=== PATIENT | female | born 1955 | race Caucasian/White ===

== ENCOUNTER 2018-05-07 22:24 | Inpatient (IN) | payer MEDICARE, BC, SELFPAY ==
[2018-05-07 22:31] VITALS: BP 144/81; PULSE 107; RESP 20; TEMP 37.3; O2SAT 94; BMI 35.4
[2018-05-07 23:17] LABS: Add Manual Diff / Slide Review NO; Basophils Percent Auto 0.4 % (0-2); Eosinophils Percent Auto 0.6 % (2-4); Hematocrit 42.7 % (36-46); Hemoglobin 14.3 g/dL (12.0-16.0); Mean Corpuscular HGB Conc 33.4 % (30-36); Mean Corpuscular Hemoglobin 30.1 PG (26-34); Mean Corpuscular Volume 90.1 fL (80-100); Monocytes Percent Auto 10.8 % (3-14); Neutrophils Absolute Auto 8700 /uL (3000-5900); Neutrophils Percent Auto 77.2 % (50-75); Platelet Count 298 X10^3/uL (150-400); Red Blood Cell Count 4.74 X10^6/uL (4.0-5.2); Red Cell Distribution Width 13.6 % (11.6-14.8); White Blood Cell Count 11.3 X10^3/uL (4.5-11.0)
[2018-05-07 23:22] LABS: Alanine Aminotransferase 24 IU/L (9-52); Albumin 4.4 g/dL (3.5-5.0); Albumin Globulin Ratio 1.5 (1.0-2.8); Alkaline Phosphatase 78 U/L (38-126); Aspartate Aminotransferase 17 IU/L (14-36); BUN Creatinine Ratio 23.8 (6-22); Bilirubin Total 0.5 mg/dL (0.2-1.3); Blood Urea Nitrogen 19 mg/dL (7-17); Calcium 9.5 mg/dL (8.4-10.2); Carbon Dioxide 29 mmol/L (22-32); Chloride 105 mmol/L (98-107); Estimated Glomerular Filt Rate > 60.0 mL/min (>60); Glucose 139 mg/dL (80-110); HEMOLYSIS < 15 (0-50); Potassium 3.9 mmol/L (3.4-5.1); Sodium 143 mmol/L (137-145); Total Protein 7.4 g/dL (6.3-8.2)
[2018-05-08] VITALS (14 sets, daily range): BP systolic 135–146; BP diastolic 53–114; PULSE 78–92; RESP 16–22; TEMP 36.3–36.8; O2SAT 91–97; BMI 35.4
[2018-05-08] MEDS: HYDROMORPHONE 1 MG INJ IV (00:14)
[2018-05-08] MEDS: ONDANSETRON 4 MG/2 ML INJ IV ×5 (00:14→17:48)
--- NOTE | 2018-05-08 00:17 | ED.ABDPAIN ---
HPI - Abdominal Pain General Chief Complaint: Abdominal Pain Stated Complaint: got off a flight and feels ill Time Seen by Provider: 05/07/18 23:47 Source: patient and family Mode of arrival: ambulatory Limitations: no limitations History of Present Illness HPI narrative: Patient states that she has had escalating abdominal pain for the last 2 days. She states it started on the plane on a flight from [place]. The patient states initially it was a left lower quadrant abdominal pain which escalated. She states she began to feel bloated and nauseated and today has been vomiting and dry heaving. She states if she tries to take anything by mouth, it comes right back up. She states she has passed gas today but has had no bowel movement for 3 days. Patient has a history of multiple surgeries to her abdomen, as well as a history of diverticulitis. Patient denies fevers. She states that when she vomits, it is what ever she last ate that comes up. MD complaint: abdominal pain Onset (ago): day(s) Severity scale (1-10): 9 Quality: stabbing Radiation: none Relieving factors: nothing Exacerbating factors: eating Context: other (Patient is here from [place] for a family reunion.) Associated symptoms: nausea, vomiting and other (No diarrhea, fever, chills, dysuria, melena, syncope, or hematuria. Patient has had constipation and anorexia.) Related Data Home Medications Medication Instructions Recorded Confirmed alprazolam 0.25 mg PO BID 05/08/18 05/08/18 aspirin [Aspir-Edel] 325 mg PO DAILY 05/08/18 05/08/18 bupropion HCl 300 mg PO QAM 05/08/18 05/08/18 cholecalciferol (vitamin D3) 1,000 unit PO DAILY 05/08/18 05/08/18 [Vitamin D3] glucosamine-chondroitin [Osteo 2 tab PO QPC 05/08/18 05/08/18 Bi-Flex] levothyroxine [Synthroid] 100 mcg PO DAILY 05/08/18 05/08/18 mirtazapine 15 mg PO DAILY 05/08/18 05/08/18 omeprazole 40 mg PO DAILY PRN 05/08/18 05/08/18 risperidone 1 mg PO DAILY 05/08/18 05/08/18 vitamin [id number] acid 1 tab PO DAILY 05/08/18 05/08/18 Allergies Allergy/AdvReac Type Severity Reaction Status Date / Time No Known Drug Allergies Allergy Verified 05/07/18 22:38 Review of Systems Review of Systems All systems reviewed & are unremarkable except as noted in HPI and below Constitutional Denies chills, Denies fever(s), Denies lethargy and Denies weakness Eyes Denies change in vision, Denies eye discharge, Denies irritation and Denies loss of vision ENT Ears, Nose, Mouth, and Throat: Denies change in voice, Denies neck pain and Denies sore throat Cardiovascular Denies chest pain, Denies irregular heart rhythm, Denies lightheadedness, Denies palpitations, Denies dyspnea, Denies dyspnea on exertion and Denies orthopnea Respiratory Denies cough, Denies dyspnea, Denies dyspnea on exertion and Denies wheezing Gastrointestinal Gastrointestinal: Reports abdominal pain, Denies change in bowel habits, Denies diarrhea, Reports nausea and Reports vomiting Genitourinary Denies hematuria, Denies flank pain, Denies urinary incontinence and Denies urinary urgency Musculoskeletal Denies neck pain Integumentary/Breasts Denies pruritus, Denies erythema, Denies rash and Denies wounds Neurologic Denies confusion, Denies loss of vision and Denies weakness Psychiatric Denies anxiety, Denies confusion, Denies depression, Denies homicidal ideation and Denies suicidal ideation Endocrine Denies palpitations Hematologic/Lymphatic Denies easy bruising Allergic/Immunologic Denies wheezing [facility] Medical History Anxiety disorder (Acute) Benign ovarian tumor (Acute) Depression (Acute) Gastroesophageal reflux disease (Acute) History of colitis (Acute) History of diverticulitis (Acute) History of tobacco abuse (Acute) Hyperlipidemia (Acute) Hypothyroidism (Acute) Perforation of colon as colonoscopy complication (Acute) Vitamin D deficiency (Acute) Surgical History History of colonoscopy (Acute) History of foot surgery (Acute) History of incisional hernia repair (Acute) History of unilateral oophorectomy (Acute) Status post partial colectomy (Acute) Social History household members: spouse Smoking Status: Current every day smoker Exam Initial Vital Signs Initial Vital Signs: Vital Signs Temperature 99.2 F 05/07/18 22:31 Pulse Rate 107 H 05/07/18 22:31 Respiratory Rate 20 05/07/18 22:31 Blood Pressure 144/81 H 05/07/18 22:31 Pulse Oximetry 94 05/07/18 22:31 Const General: cooperative, well developed and acute distress (Patient is writhing in pain, and tearful) Nutritional Appearance: well nourished Orientation: alert, awake, oriented x3 and not confused [facility] Head: normocephalic and atraumatic Ears: external ears normal and TM's normal bilaterally Nose: external nose normal and No nasal discharge Face and sinus: sinuses nontender, face symmetric, no sinus tenderness and No dry mucous membranes Mouth: oral mucosae normal and moist mucous membranes Teeth and gingiva: dentition normal Throat: tonsils normal and uvula midline Eyes General: appearance normal, both eyes and all related structures Eyelids: eyelids normal Conjunctivae: conjunctivae normal Sclera: sclerae normal Pupils: PERRL EOM: EOM intact bilaterally Neck Neck: normal visual inspection, trachea midline, No lymphadenopathy, No midline deformity and No JVD Lymphatic: No lymphedema Chest Chest: normal inspection of the chest Resp Effort & Inspection: normal respiratory effort, able to speak in complete sentences, no respiratory distress and no use of accessory muscles Auscultation: clear to auscultation bilaterally, no rales, no rhonchi and no wheezes Cardio Rate: regular rate Rhythm: regular rhythm Heart Sounds: no click, no gallops, no murmurs and no rubs Pulses: normal peripheral pulses GI Inspection: distended (But soft) Palpation: soft, no hepatosplenomegaly, No guarding, No pulsatile mass and tender (Moderate, left side) Auscultation: normal bowel sounds Back/Spine/Pelvis Back: No CVA tenderness Cervical Spine: cervical ROM normal and No pain with cervical ROM Thoracic/Lumbar Spine: thoracic and lumbar spine normal to inspection Skin General: no rashes or lesions noted, No jaundice and No petechiae Neuro General: alert, oriented x3, gait normal and no focal motor deficits Speech: speech normal Extrem General: full ROM, no clubbing, cyanosis or edema, no pedal edema and no calf tenderness Psych Appearance: well kempt Mental Status: mental status grossly normal Attitude: cooperative Thought Content: normal and suicidality Judgment: judgment good Course Course Narrative: Patient had significant abdominal pain in the emergency department, and was treated symptomatically with Dilaudid and Zofran. She was also given IV fluids. I felt she should be worked up to determine the cause for symptoms, and so labs, urinalysis, and abdominal CT were performed. Patient was found to have a small-bowel obstruction. An NG tube was placed in the emergency department and I did speak Dr. Wilson, who is compensation/benefits specialist for general surgery. He did agree to admit the patient. Preliminary orders were written from the emergency department by myself. Orders Ordered: Acetaminophen (Tylenol) 650 mg [place] Q6HR PRN PRN Reason: As Needed for Fever/Mild Pain Albuterol (Ventolin) 2.5 mg INH [id number] PRN PRN Reason: Shortness Of Breath Last Admin: 05/08/18 10:56 Dose: 2.5 mg Albuterol/Ipratropium (Duoneb) 3 ml INH RTBID [facility] Last Admin: 05/11/18 05:48 Dose: 3 ml Admin: 05/10/18 20:32 Dose: 3 ml Admin: 05/10/18 05:16 Dose: 3 ml Admin: 05/09/18 19:49 Dose: 3 ml Alprazolam (Xanax) 0.25 mg PO BID [facility] Last Admin: 05/11/18 08:02 Dose: 0.25 mg Admin: 05/10/18 20:48 Dose: 0.25 mg Admin: 05/10/18 09:44 Dose: 0.25 mg Benzocaine (Cepacol Lozenge) 1 each PO Q1HR PRN PRN Reason: Sore Throat Last Admin: 05/09/18 22:04 Dose: 1 each Admin: 05/09/18 19:24 Dose: 1 each Admin: 05/09/18 00:22 Dose: 1 each Admin: 05/08/18 06:50 Dose: 1 each Bupropion HCl (Wellbutrin Xl) 300 mg PO DAILY [facility] Last Admin: 05/11/18 08:02 Dose: 300 mg Admin: 05/10/18 13:41 Dose: 300 mg Enoxaparin Sodium (Lovenox) 40 mg SUBCUT DAILY [facility] Last Admin: 05/11/18 08:01 Dose: 40 mg Admin: 05/10/18 09:44 Dose: 40 mg Admin: 05/09/18 09:20 Dose: 40 mg Admin: 05/08/18 11:23 Dose: 40 mg Lorazepam (Ativan) 1 mg IV Q4HR PRN PRN Reason: Anxiety Last Admin: 05/10/18 05:03 Dose: 1 mg Admin: 05/09/18 09:56 Dose: 1 mg Admin: 05/09/18 00:31 Dose: 1 mg Admin: 05/08/18 08:18 Dose: 1 mg Magnesium Hydroxide (Milk Of Magnesia) 30 ml PO BID [facility] Last Admin: 05/11/18 08:02 Dose: Not Given Admin: 05/10/18 20:48 Dose: 30 ml Admin: 05/10/18 09:44 Dose: 30 ml Mirtazapine (Remeron) 15 mg PO BEDTIME [facility] Last Admin: 05/10/18 20:48 Dose: 15 mg Morphine Sulfate (Morphine) 2 mg IV Q2HR PRN PRN Reason: Pain, Moderate (4-6) Last Admin: 05/10/18 00:05 Dose: 2 mg Admin: 05/09/18 09:59 Dose: 2 mg Admin: 05/08/18 15:23 Dose: 2 mg Admin: 05/08/18 11:23 Dose: 2 mg Ondansetron HCl (Zofran) 4 mg IV Q6HR [facility] Last Admin: 05/11/18 06:04 Dose: Admin: 05/11/18 02:19 Dose: Admin: 05/10/18 18:12 Dose: Not Given Admin: 05/10/18 13:31 Dose: Not Given Admin: 05/10/18 06:13 Dose: Admin: 05/10/18 00:05 Dose: 4 mg Admin: 05/09/18 19:24 Dose: Admin: 05/09/18 13:34 Dose: Not Given Admin: 05/09/18 06:26 Dose: Not Given Admin: 05/09/18 00:15 Dose: 4 mg Admin: 05/08/18 17:48 Dose: 4 mg Admin: 05/08/18 13:01 Dose: 4 mg Pantoprazole Sodium (Protonix) 40 mg IV DAILY [facility] Last Admin: 05/11/18 08:02 Dose: 40 mg Admin: 05/10/18 09:44 Dose: 40 mg Admin: 05/09/18 09:20 Dose: 40 mg Admin: 05/08/18 08:18 Dose: 40 mg Risperidone (Risperdal) 1 mg PO DAILY SKIP Last Admin: 05/11/18 08:02 Dose: 1 mg Admin: 05/10/18 13:41 Dose: 1 mg Discontinued Medications Albuterol/Ipratropium (Duoneb) 3 ml INH [id number] SKIP Last Admin: 05/09/18 08:41 Dose: 3 ml Admin: 05/08/18 17:45 Dose: 3 ml Admin: 05/08/18 12:55 Dose: 3 ml Hydromorphone HCl (Dilaudid) 1 mg IV NOW ONE Stop: 05/07/18 23:55 Last Admin: 05/08/18 00:14 Dose: 1 mg Sodium Chloride (Normal Saline 0.9%) 1,000 mls @ 1,000 mls/hr IV BOLUS ONE Stop: 05/08/18 01:48 Last Infusion: 05/08/18 02:46 Dose: 0 mls/hr Admin: 05/08/18 00:50 Dose: 1,000 mls/hr Sodium Chloride (Normal Saline 0.9%) 1,000 mls @ 125 mls/hr IV CONT SKIP Last Admin: 05/08/18 03:15 Dose: 125 mls/hr Sodium Chloride (Normal Saline 0.9%) 1,000 mls @ 60 mls/hr IV CONT SKIP Last Admin: 05/11/18 06:52 Dose: 60 mls/hr Infusion: 05/11/18 06:22 Dose: 60 mls/hr Admin: 05/10/18 13:41 Dose: 60 mls/hr Infusion: 05/10/18 11:35 Dose: 150 mls/hr Admin: 05/10/18 04:54 Dose: 150 mls/hr Infusion: 05/10/18 04:45 Dose: 150 mls/hr Admin: 05/09/18 22:04 Dose: 150 mls/hr Infusion: 05/09/18 21:57 Dose: 0 mls/hr Admin: 05/09/18 15:08 Dose: 150 mls/hr Infusion: 05/09/18 08:16 Dose: 150 mls/hr Admin: 05/09/18 01:35 Dose: 150 mls/hr Infusion: 05/09/18 01:34 Dose: 150 mls/hr Admin: 05/08/18 17:47 Dose: 150 mls/hr Admin: 05/08/18 07:00 Dose: Levothyroxine Sodium (Synthroid) 100 mcg PO QACBREAK SKIP Mirtazapine (Remeron) 15 mg PO DAILY SKIP Last Admin: 05/10/18 14:12 Dose: Not Given Morphine Sulfate (Morphine) 2 mg IV Q4HR PRN PRN Reason: Pain, Moderate (4-6) Last Admin: 05/08/18 04:28 Dose: 2 mg Ondansetron HCl (Zofran) 4 mg IV NOW ONE Stop: 05/07/18 23:56 Last Admin: 05/08/18 00:14 Dose: 4 mg Ondansetron HCl (Zofran) 4 mg IV Q6HR PRN PRN Reason: Nausea And Vomiting Last Admin: 05/08/18 00:49 Dose: 4 mg Ondansetron HCl (Zofran) 4 mg IV Q4HR PRN PRN Reason: Nausea And Vomiting Last Admin: 05/08/18 05:32 Dose: 4 mg Vital Signs - 8 hr 05/11/18 05:49 05/11/18 05:52 05/11/18 08:00 Temperature 98.6 F 98.1 F Pulse Rate 66 67 Respiratory Rate 16 18 Blood Pressure 123/58 L 132/55 L Pulse Oximetry 93 91 93 MDM - Abdominal Pain Medical Records Attestation: I reviewed the patient's medical records. Lab Data Attestation: I reviewed the patient's lab results. Result diagrams: 05/09/18 04:57 05/09/18 04:57 Lab Results 05/07/18 05/07/18 05/08/18 Range/Units 23:05 23:05 12:05 WBC 11.3 H (4.5-11.0) X10^3/uL RBC 4.74 (4.0-5.2) X10^6/uL Hgb 14.3 (12.0-16.0) g/dL Hct 42.7 (36-46) % MCV 90.1 (80-100) fL MCH 30.1 (26-34) PG MCHC 33.4 (30-36) % RDW 13.6 (11.6-14.8) % Plt Count 298 (150-400) X10^3/uL Neut % (Auto) 77.2 H (50-75) % Lymph % (Auto) 11.0 L (25-40) % [place] % (Auto) 10.8 (3-14) % Eos % (Auto) 0.6 L (2-4) % Baso % (Auto) 0.4 (0-2) % Neut # (Auto) 8700 H (9834-0936) /uL Sodium 143 (137-145) mmol/L Potassium 3.9 (3.4-5.1) mmol/L Chloride 105 (98-107) mmol/L Carbon Dioxide 29 (22-32) mmol/L BUN 19 H (7-17) mg/dL Creatinine 0.80 (0.52-1.04) mg/dL Estimated GFR > 60.0 (>60) mL/min BUN/Creatinine Ratio 23.8 H (6-22) Glucose 139 H (80-110) mg/dL Lactate (0.7-2.1) mmol/L Calcium 9.5 (8.4-10.2) mg/dL Total Bilirubin 0.5 (0.2-1.3) mg/dL AST 17 (14-36) IU/L ALT 24 (9-52) IU/L Alkaline Phosphatase 78 (38-126) U/L Total Creatine Kinase 75 (30-135) U/L Troponin I < 0.012 (0.01-0.034) ng/mL B-Natriuretic Peptide (<100) Total Protein 7.4 (6.3-8.2) g/dL Albumin 4.4 (3.5-5.0) g/dL Globulin 3.0 (1.7-4.1) g/dL Albumin/Globulin Ratio 1.5 (1.0-2.8) 05/08/18 05/09/18 05/09/18 Range/Units 12:05 04:57 04:57 WBC 7.7 (4.5-11.0) X10^3/uL RBC 3.89 L (4.0-5.2) X10^6/uL Hgb 11.9 L (12.0-16.0) g/dL Hct 35.1 L (36-46) % MCV 90.2 (80-100) fL MCH 30.5 (26-34) PG MCHC 33.8 (30-36) % RDW 13.9 (11.6-14.8) % Plt Count 209 (150-400) X10^3/uL Neut % (Auto) 71.4 (50-75) % Lymph % (Auto) 14.7 L (25-40) % [place] % (Auto) 12.4 (3-14) % Eos % (Auto) 1.3 L (2-4) % Baso % (Auto) 0.2 (0-2) % Neut # (Auto) 5500 (5658-5613) /uL Sodium (137-145) mmol/L Potassium (3.4-5.1) mmol/L Chloride (98-107) mmol/L Carbon Dioxide (22-32) mmol/L BUN (7-17) mg/dL Creatinine (0.52-1.04) mg/dL Estimated GFR (>60) mL/min BUN/Creatinine Ratio (6-22) Glucose (80-110) mg/dL Lactate < 0.5 L (0.7-2.1) mmol/L Calcium (8.4-10.2) mg/dL Total Bilirubin (0.2-1.3) mg/dL AST (14-36) IU/L ALT (9-52) IU/L Alkaline Phosphatase (38-126) U/L Total Creatine Kinase (30-135) U/L Troponin I (0.01-0.034) ng/mL B-Natriuretic Peptide < 100.0 (<100) Total Protein (6.3-8.2) g/dL Albumin (3.5-5.0) g/dL Globulin (1.7-4.1) g/dL Albumin/Globulin Ratio (1.0-2.8) 05/09/18 Range/Units 04:57 WBC (4.5-11.0) X10^3/uL RBC (4.0-5.2) X10^6/uL Hgb (12.0-16.0) g/dL Hct (36-46) % MCV (80-100) fL MCH (26-34) PG MCHC (30-36) % RDW (11.6-14.8) % Plt Count (150-400) X10^3/uL Neut % (Auto) (50-75) % Lymph % (Auto) (25-40) % [place] % (Auto) (3-14) % Eos % (Auto) (2-4) % Baso % (Auto) (0-2) % Neut # (Auto) (0551-6229) /uL Sodium 144 (137-145) mmol/L Potassium 3.9 (3.4-5.1) mmol/L Chloride 108 H (98-107) mmol/L Carbon Dioxide 32 (22-32) mmol/L BUN 15 (7-17) mg/dL Creatinine 0.60 (0.52-1.04) mg/dL Estimated GFR > 60.0 (>60) mL/min BUN/Creatinine Ratio 25.0 H (6-22) Glucose 102 (80-110) mg/dL Lactate (0.7-2.1) mmol/L Calcium 8.4 (8.4-10.2) mg/dL Total Bilirubin (0.2-1.3) mg/dL AST (14-36) IU/L ALT (9-52) IU/L Alkaline Phosphatase (38-126) U/L Total Creatine Kinase (30-135) U/L Troponin I (0.01-0.034) ng/mL B-Natriuretic Peptide (<100) Total Protein (6.3-8.2) g/dL Albumin (3.5-5.0) g/dL Globulin (1.7-4.1) g/dL Albumin/Globulin Ratio (1.0-2.8) Point of care testing: Point of Care Testing Test Results Negative Glucose POC 73 Urine Dip Bedside Urine Glucose Negative Bedside Urine Bilirubin - Negative Bedside Urine Ketone - Negative Urine Specific [place] 1.010 Bedside Urine Occult Blood - Negative Bedside Urine pH 8.0 Bedside Urine Protein - Negative Bedside Urine Urobilinogen - Negative Bedside Urine Nitrite - Negative Bedside Urine Leukocytes - Negative Esterase Imaging Data CT scan - abdomen: Attestation: I personally reviewed and interpreted this imaging study as follows: My impression: Small-bowel obstruction Radiologist's impression: PROCEDURE: CT ABDOMEN PELVIS W CON INDICATIONS: L-sided abdominal pain TECHNIQUE: After the administration of intravenous contrast, 5 mm thick sections acquired from the diaphragm to the symphysis. 5 mm coronal and sagittal reformats were acquired. For radiation dose reduction, the following was used: automated exposure control, adjustment of mA and/or kV according to patient size. COMPARISON: [facility], CR, XR CHEST 1V, 05/08/2018, 5:18. FINDINGS: Image quality: 2 ABDOMEN: Lung bases: Right basilar atelectasis. Heart size is normal. Solid organs: Liver is normal in size and enhancement. Gallbladder is normal. Biliary system is non dilated. Pancreas enhances normally. Spleen is normal in size and enhancement. No adrenal nodules. Kidneys demonstrate normal size and enhancement, without hydronephrosis. Peritoneum and bowel: Distended small bowel loops measure up to 3 cm in diameter and containing air-fluid levels, compatible with small bowel obstruction. The transitional point is in the mid to lower abdomen is relatively midline (series 2 image [id number]; series 4 image [id number]), probably within the proximal to mid ileum. Bowel loops demonstrate normal wall thickness and caliber. There are colonic diverticula. No active diverticulitis. colitis which No free fluid or air. Nodes and vessels: No retroperitoneal or mesenteric adenopathy by size criteria. Aorta and inferior vena cava are normal in size. Miscellaneous: There are periumbilical hernias. PELVIS: Genitourinary: Bladder wall thickness is normal. Miscellaneous: No inguinal hernias or adenopathy. Bones: No suspicious bony lesions. No vertebral body compression fractures. Scoliosis and degenerative changes in lumbar spine. IMPRESSION: 1. The CT findings are consistent with small bowel obstruction. 2. Diverticulosis without diverticulitis. 3. Multiple periumbilical ventral hernias. No significant discrepancy with the lieutenant shift supervisor radiology preliminary report. Dictated by: Hermann Aldana M.D. on 05/08/2018 at 7:30 Approved by: Hermann Aldana M.D. on 05/08/2018 at 7:40 Discharge Plan Departure Patient Disposition: Admitted As Inpatient Clinical Impression: Small bowel obstruction Discharge Date/Time: 05/08/18 02:51 Interventions: ED Discharge Assessment Last Done: 05/08/18 02:50 Admit Date/Time: 05/08/18 02:40 Admit Provider: Binh Wilson
--- NOTE | 2018-05-08 00:22 | ED_ITS ---
HPI - Abdominal Pain General Chief Complaint: Abdominal Pain Stated Complaint: got off a flight and feels ill Time Seen by Provider: 05/07/18 23:47 Source: patient and family Mode of arrival: ambulatory Limitations: no limitations History of Present Illness HPI narrative: Patient states that she has had escalating abdominal pain for the last 2 days. She states it started on the plane on a flight from [place]. The patient states initially it was a left lower quadrant abdominal pain which escalated. She states she began to feel bloated and nauseated and today has been vomiting and dry heaving. She states if she tries to take anything by mouth, it comes right back up. She states she has passed gas today but has had no bowel movement for 3 days. Patient has a history of multiple surgeries to her abdomen, as well as a history of diverticulitis. Patient denies fevers. She states that when she vomits, it is what ever she last ate that comes up. MD complaint: abdominal pain Onset (ago): day(s) Severity scale (1-10): 9 Quality: stabbing Radiation: none Relieving factors: nothing Exacerbating factors: eating Context: other (Patient is here from [place] for a family reunion.) Associated symptoms: nausea, vomiting and other (No diarrhea, fever, chills, dysuria, melena, syncope, or hematuria. Patient has had constipation and anorexia.) Related Data Home Medications Medication Instructions Recorded Confirmed alprazolam 0.25 mg PO BID 05/08/18 05/08/18 aspirin [Aspir-Edel] 325 mg PO DAILY 05/08/18 05/08/18 bupropion HCl 300 mg PO QAM 05/08/18 05/08/18 cholecalciferol (vitamin D3) 1,000 unit PO DAILY 05/08/18 05/08/18 [Vitamin D3] glucosamine-chondroitin [Osteo 2 tab PO QPC 05/08/18 05/08/18 Bi-Flex] levothyroxine [Synthroid] 100 mcg PO DAILY 05/08/18 05/08/18 mirtazapine 15 mg PO DAILY 05/08/18 05/08/18 omeprazole 40 mg PO DAILY PRN 05/08/18 05/08/18 risperidone 1 mg PO DAILY 05/08/18 05/08/18 vitamin [id number]-[id number] acid 1 tab PO DAILY 05/08/18 05/08/18 Allergies Allergy/AdvReac Type Severity Reaction Status Date / Time No Known Drug Allergies Allergy Verified 05/07/18 22:38 Review of Systems Review of Systems All systems reviewed & are unremarkable except as noted in HPI and below Constitutional Denies chills, Denies fever(s), Denies lethargy and Denies weakness Eyes Denies change in vision, Denies eye discharge, Denies irritation and Denies loss of vision ENT Ears, Nose, Mouth, and Throat: Denies change in voice, Denies neck pain and Denies sore throat Cardiovascular Denies chest pain, Denies irregular heart rhythm, Denies lightheadedness, Denies palpitations, Denies dyspnea, Denies dyspnea on exertion and Denies orthopnea Respiratory Denies cough, Denies dyspnea, Denies dyspnea on exertion and Denies wheezing Gastrointestinal Gastrointestinal: Reports abdominal pain, Denies change in bowel habits, Denies diarrhea, Reports nausea and Reports vomiting Genitourinary Denies hematuria, Denies flank pain, Denies urinary incontinence and Denies urinary urgency Musculoskeletal Denies neck pain Integumentary/Breasts Denies pruritus, Denies erythema, Denies rash and Denies wounds Neurologic Denies confusion, Denies loss of vision and Denies weakness Psychiatric Denies anxiety, Denies confusion, Denies depression, Denies homicidal ideation and Denies suicidal ideation Endocrine Denies palpitations Hematologic/Lymphatic Denies easy bruising Allergic/Immunologic Denies wheezing [facility] Medical History Anxiety disorder (Acute) Benign ovarian tumor (Acute) Depression (Acute) Gastroesophageal reflux disease (Acute) History of colitis (Acute) History of diverticulitis (Acute) History of tobacco abuse (Acute) Hyperlipidemia (Acute) Hypothyroidism (Acute) Perforation of colon as colonoscopy complication (Acute) Vitamin D deficiency (Acute) Surgical History History of colonoscopy (Acute) History of foot surgery (Acute) History of incisional hernia repair (Acute) History of unilateral oophorectomy (Acute) Status post partial colectomy (Acute) Social History household members: spouse Smoking Status: Current every day smoker Exam Initial Vital Signs Initial Vital Signs: Vital Signs Temperature 99.2 F 05/07/18 22:31 Pulse Rate 107 H 05/07/18 22:31 Respiratory Rate 20 05/07/18 22:31 Blood Pressure 144/81 H 05/07/18 22:31 Pulse Oximetry 94 05/07/18 22:31 Const General: cooperative, well developed and acute distress (Patient is writhing in pain, and tearful) Nutritional Appearance: well nourished Orientation: alert, awake, oriented x3 and not confused [facility] Head: normocephalic and atraumatic Ears: external ears normal and TM's normal bilaterally Nose: external nose normal and No nasal discharge Face and sinus: sinuses nontender, face symmetric, no sinus tenderness and No dry mucous membranes Mouth: oral mucosae normal and moist mucous membranes Teeth and gingiva: dentition normal Throat: tonsils normal and uvula midline Eyes General: appearance normal, both eyes and all related structures Eyelids: eyelids normal Conjunctivae: conjunctivae normal Sclera: sclerae normal Pupils: PERRL EOM: EOM intact bilaterally Neck Neck: normal visual inspection, trachea midline, No lymphadenopathy, No midline deformity and No JVD Lymphatic: No lymphedema Chest Chest: normal inspection of the chest Resp Effort & Inspection: normal respiratory effort, able to speak in complete sentences, no respiratory distress and no use of accessory muscles Auscultation: clear to auscultation bilaterally, no rales, no rhonchi and no wheezes Cardio Rate: regular rate Rhythm: regular rhythm Heart Sounds: no click, no gallops, no murmurs and no rubs Pulses: normal peripheral pulses GI Inspection: distended (But soft) Palpation: soft, no hepatosplenomegaly, No guarding, No pulsatile mass and tender (Moderate, left side) Auscultation: normal bowel sounds Back/Spine/Pelvis Back: No CVA tenderness Cervical Spine: cervical ROM normal and No pain with cervical ROM Thoracic/Lumbar Spine: thoracic and lumbar spine normal to inspection Skin General: no rashes or lesions noted, No jaundice and No petechiae Neuro General: alert, oriented x3, gait normal and no focal motor deficits Speech: speech normal Extrem General: full ROM, no clubbing, cyanosis or edema, no pedal edema and no calf tenderness Psych Appearance: well kempt Mental Status: mental status grossly normal Attitude: cooperative Thought Content: normal and suicidality Judgment: judgment good Course Course Narrative: Patient had significant abdominal pain in the emergency department, and was treated symptomatically with Dilaudid and Zofran. She was also given IV fluids. I felt she should be worked up to determine the cause for symptoms, and so labs, urinalysis, and abdominal CT were performed. Patient was found to have a small-bowel obstruction. An NG tube was placed in the emergency department and I did speak Dr. Wilson, who is irrigation supervisor for general surgery. He did agree to admit the patient. Preliminary orders were written from the emergency department by myself. Orders Ordered: Acetaminophen (Tylenol) 650 mg [place] Q6HR PRN PRN Reason: As Needed for Fever/Mild Pain Albuterol (Ventolin) 2.5 mg INH [id number] PRN PRN Reason: Shortness Of Breath Last Admin: 05/08/18 10:56 Dose: 2.5 mg Albuterol/Ipratropium (Duoneb) 3 ml INH RTBID [facility] Last Admin: 05/11/18 05:48 Dose: 3 ml Admin: 05/10/18 20:32 Dose: 3 ml Admin: 05/10/18 05:16 Dose: 3 ml Admin: 05/09/18 19:49 Dose: 3 ml Alprazolam (Xanax) 0.25 mg PO BID [facility] Last Admin: 05/11/18 08:02 Dose: 0.25 mg Admin: 05/10/18 20:48 Dose: 0.25 mg Admin: 05/10/18 09:44 Dose: 0.25 mg Benzocaine (Cepacol Lozenge) 1 each PO Q1HR PRN PRN Reason: Sore Throat Last Admin: 05/09/18 22:04 Dose: 1 each Admin: 05/09/18 19:24 Dose: 1 each Admin: 05/09/18 00:22 Dose: 1 each Admin: 05/08/18 06:50 Dose: 1 each Bupropion HCl (Wellbutrin Xl) 300 mg PO DAILY [facility] Last Admin: 05/11/18 08:02 Dose: 300 mg Admin: 05/10/18 13:41 Dose: 300 mg Enoxaparin Sodium (Lovenox) 40 mg SUBCUT DAILY [facility] Last Admin: 05/11/18 08:01 Dose: 40 mg Admin: 05/10/18 09:44 Dose: 40 mg Admin: 05/09/18 09:20 Dose: 40 mg Admin: 05/08/18 11:23 Dose: 40 mg Lorazepam (Ativan) 1 mg IV Q4HR PRN PRN Reason: Anxiety Last Admin: 05/10/18 05:03 Dose: 1 mg Admin: 05/09/18 09:56 Dose: 1 mg Admin: 05/09/18 00:31 Dose: 1 mg Admin: 05/08/18 08:18 Dose: 1 mg Magnesium Hydroxide (Milk Of Magnesia) 30 ml PO BID [facility] Last Admin: 05/11/18 08:02 Dose: Not Given Admin: 05/10/18 20:48 Dose: 30 ml Admin: 05/10/18 09:44 Dose: 30 ml Mirtazapine (Remeron) 15 mg PO BEDTIME [facility] Last Admin: 05/10/18 20:48 Dose: 15 mg Morphine Sulfate (Morphine) 2 mg IV Q2HR PRN PRN Reason: Pain, Moderate (4-6) Last Admin: 05/10/18 00:05 Dose: 2 mg Admin: 05/09/18 09:59 Dose: 2 mg Admin: 05/08/18 15:23 Dose: 2 mg Admin: 05/08/18 11:23 Dose: 2 mg Ondansetron HCl (Zofran) 4 mg IV Q6HR [facility] Last Admin: 05/11/18 06:04 Dose: Admin: 05/11/18 02:19 Dose: Admin: 05/10/18 18:12 Dose: Not Given Admin: 05/10/18 13:31 Dose: Not Given Admin: 05/10/18 06:13 Dose: Admin: 05/10/18 00:05 Dose: 4 mg Admin: 05/09/18 19:24 Dose: Admin: 05/09/18 13:34 Dose: Not Given Admin: 05/09/18 06:26 Dose: Not Given Admin: 05/09/18 00:15 Dose: 4 mg Admin: 05/08/18 17:48 Dose: 4 mg Admin: 05/08/18 13:01 Dose: 4 mg Pantoprazole Sodium (Protonix) 40 mg IV DAILY [facility] Last Admin: 05/11/18 08:02 Dose: 40 mg Admin: 05/10/18 09:44 Dose: 40 mg Admin: 05/09/18 09:20 Dose: 40 mg Admin: 05/08/18 08:18 Dose: 40 mg Risperidone (Risperdal) 1 mg PO DAILY SKIP Last Admin: 05/11/18 08:02 Dose: 1 mg Admin: 05/10/18 13:41 Dose: 1 mg Discontinued Medications Albuterol/Ipratropium (Duoneb) 3 ml INH [id number] SKIP Last Admin: 05/09/18 08:41 Dose: 3 ml Admin: 05/08/18 17:45 Dose: 3 ml Admin: 05/08/18 12:55 Dose: 3 ml Hydromorphone HCl (Dilaudid) 1 mg IV NOW ONE Stop: 05/07/18 23:55 Last Admin: 05/08/18 00:14 Dose: 1 mg Sodium Chloride (Normal Saline 0.9%) 1,000 mls @ 1,000 mls/hr IV BOLUS ONE Stop: 05/08/18 01:48 Last Infusion: 05/08/18 02:46 Dose: 0 mls/hr Admin: 05/08/18 00:50 Dose: 1,000 mls/hr Sodium Chloride (Normal Saline 0.9%) 1,000 mls @ 125 mls/hr IV CONT SKIP Last Admin: 05/08/18 03:15 Dose: 125 mls/hr Sodium Chloride (Normal Saline 0.9%) 1,000 mls @ 60 mls/hr IV CONT SKIP Last Admin: 05/11/18 06:52 Dose: 60 mls/hr Infusion: 05/11/18 06:22 Dose: 60 mls/hr Admin: 05/10/18 13:41 Dose: 60 mls/hr Infusion: 05/10/18 11:35 Dose: 150 mls/hr Admin: 05/10/18 04:54 Dose: 150 mls/hr Infusion: 05/10/18 04:45 Dose: 150 mls/hr Admin: 05/09/18 22:04 Dose: 150 mls/hr Infusion: 05/09/18 21:57 Dose: 0 mls/hr Admin: 05/09/18 15:08 Dose: 150 mls/hr Infusion: 05/09/18 08:16 Dose: 150 mls/hr Admin: 05/09/18 01:35 Dose: 150 mls/hr Infusion: 05/09/18 01:34 Dose: 150 mls/hr Admin: 05/08/18 17:47 Dose: 150 mls/hr Admin: 05/08/18 07:00 Dose: Levothyroxine Sodium (Synthroid) 100 mcg PO QACBREAK SKIP Mirtazapine (Remeron) 15 mg PO DAILY SKIP Last Admin: 05/10/18 14:12 Dose: Not Given Morphine Sulfate (Morphine) 2 mg IV Q4HR PRN PRN Reason: Pain, Moderate (4-6) Last Admin: 05/08/18 04:28 Dose: 2 mg Ondansetron HCl (Zofran) 4 mg IV NOW ONE Stop: 05/07/18 23:56 Last Admin: 05/08/18 00:14 Dose: 4 mg Ondansetron HCl (Zofran) 4 mg IV Q6HR PRN PRN Reason: Nausea And Vomiting Last Admin: 05/08/18 00:49 Dose: 4 mg Ondansetron HCl (Zofran) 4 mg IV Q4HR PRN PRN Reason: Nausea And Vomiting Last Admin: 05/08/18 05:32 Dose: 4 mg Vital Signs - 8 hr 05/11/18 05:49 05/11/18 05:52 05/11/18 08:00 Temperature 98.6 F 98.1 F Pulse Rate 66 67 Respiratory Rate 16 18 Blood Pressure 123/58 L 132/55 L Pulse Oximetry 93 91 93 MDM - Abdominal Pain Medical Records Attestation: I reviewed the patient's medical records. Lab Data Attestation: I reviewed the patient's lab results. Result diagrams: 05/09/18 04:57 05/09/18 04:57 Lab Results 05/07/18 05/07/18 05/08/18 Range/Units 23:05 23:05 12:05 WBC 11.3 H (4.5-11.0) X10^3/uL RBC 4.74 (4.0-5.2) X10^6/uL Hgb 14.3 (12.0-16.0) g/dL Hct 42.7 (36-46) % MCV 90.1 (80-100) fL MCH 30.1 (26-34) PG MCHC 33.4 (30-36) % RDW 13.6 (11.6-14.8) % Plt Count 298 (150-400) X10^3/uL Neut % (Auto) 77.2 H (50-75) % Lymph % (Auto) 11.0 L (25-40) % [place] % (Auto) 10.8 (3-14) % Eos % (Auto) 0.6 L (2-4) % Baso % (Auto) 0.4 (0-2) % Neut # (Auto) 8700 H (3002-0318) /uL Sodium 143 (137-145) mmol/L Potassium 3.9 (3.4-5.1) mmol/L Chloride 105 (98-107) mmol/L Carbon Dioxide 29 (22-32) mmol/L BUN 19 H (7-17) mg/dL Creatinine 0.80 (0.52-1.04) mg/dL Estimated GFR > 60.0 (>60) mL/min BUN/Creatinine Ratio 23.8 H (6-22) Glucose 139 H (80-110) mg/dL Lactate (0.7-2.1) mmol/L Calcium 9.5 (8.4-10.2) mg/dL Total Bilirubin 0.5 (0.2-1.3) mg/dL AST 17 (14-36) IU/L ALT 24 (9-52) IU/L Alkaline Phosphatase 78 (38-126) U/L Total Creatine Kinase 75 (30-135) U/L Troponin I < 0.012 (0.01-0.034) ng/mL B-Natriuretic Peptide (<100) Total Protein 7.4 (6.3-8.2) g/dL Albumin 4.4 (3.5-5.0) g/dL Globulin 3.0 (1.7-4.1) g/dL Albumin/Globulin Ratio 1.5 (1.0-2.8) 05/08/18 05/09/18 05/09/18 Range/Units 12:05 04:57 04:57 WBC 7.7 (4.5-11.0) X10^3/uL RBC 3.89 L (4.0-5.2) X10^6/uL Hgb 11.9 L (12.0-16.0) g/dL Hct 35.1 L (36-46) % MCV 90.2 (80-100) fL MCH 30.5 (26-34) PG MCHC 33.8 (30-36) % RDW 13.9 (11.6-14.8) % Plt Count 209 (150-400) X10^3/uL Neut % (Auto) 71.4 (50-75) % Lymph % (Auto) 14.7 L (25-40) % [place] % (Auto) 12.4 (3-14) % Eos % (Auto) 1.3 L (2-4) % Baso % (Auto) 0.2 (0-2) % Neut # (Auto) 5500 (2169-1411) /uL Sodium (137-145) mmol/L Potassium (3.4-5.1) mmol/L Chloride (98-107) mmol/L Carbon Dioxide (22-32) mmol/L BUN (7-17) mg/dL Creatinine (0.52-1.04) mg/dL Estimated GFR (>60) mL/min BUN/Creatinine Ratio (6-22) Glucose (80-110) mg/dL Lactate < 0.5 L (0.7-2.1) mmol/L Calcium (8.4-10.2) mg/dL Total Bilirubin (0.2-1.3) mg/dL AST (14-36) IU/L ALT (9-52) IU/L Alkaline Phosphatase (38-126) U/L Total Creatine Kinase (30-135) U/L Troponin I (0.01-0.034) ng/mL B-Natriuretic Peptide < 100.0 (<100) Total Protein (6.3-8.2) g/dL Albumin (3.5-5.0) g/dL Globulin (1.7-4.1) g/dL Albumin/Globulin Ratio (1.0-2.8) 05/09/18 Range/Units 04:57 WBC (4.5-11.0) X10^3/uL RBC (4.0-5.2) X10^6/uL Hgb (12.0-16.0) g/dL Hct (36-46) % MCV (80-100) fL MCH (26-34) PG MCHC (30-36) % RDW (11.6-14.8) % Plt Count (150-400) X10^3/uL Neut % (Auto) (50-75) % Lymph % (Auto) (25-40) % [place] % (Auto) (3-14) % Eos % (Auto) (2-4) % Baso % (Auto) (0-2) % Neut # (Auto) (2391-3638) /uL Sodium 144 (137-145) mmol/L Potassium 3.9 (3.4-5.1) mmol/L Chloride 108 H (98-107) mmol/L Carbon Dioxide 32 (22-32) mmol/L BUN 15 (7-17) mg/dL Creatinine 0.60 (0.52-1.04) mg/dL Estimated GFR > 60.0 (>60) mL/min BUN/Creatinine Ratio 25.0 H (6-22) Glucose 102 (80-110) mg/dL Lactate (0.7-2.1) mmol/L Calcium 8.4 (8.4-10.2) mg/dL Total Bilirubin (0.2-1.3) mg/dL AST (14-36) IU/L ALT (9-52) IU/L Alkaline Phosphatase (38-126) U/L Total Creatine Kinase (30-135) U/L Troponin I (0.01-0.034) ng/mL B-Natriuretic Peptide (<100) Total Protein (6.3-8.2) g/dL Albumin (3.5-5.0) g/dL Globulin (1.7-4.1) g/dL Albumin/Globulin Ratio (1.0-2.8) Point of care testing: Point of Care Testing Test Results Negative Glucose POC 73 Urine Dip Bedside Urine Glucose Negative Bedside Urine Bilirubin - Negative Bedside Urine Ketone - Negative Urine Specific [place] 1.010 Bedside Urine Occult Blood - Negative Bedside Urine pH 8.0 Bedside Urine Protein - Negative Bedside Urine Urobilinogen - Negative Bedside Urine Nitrite - Negative Bedside Urine Leukocytes - Negative Esterase Imaging Data CT scan - abdomen: Attestation: I personally reviewed and interpreted this imaging study as follows: My impression: Small-bowel obstruction Radiologist's impression: PROCEDURE: CT ABDOMEN PELVIS W CON INDICATIONS: L-sided abdominal pain TECHNIQUE: After the administration of intravenous contrast, 5 mm thick sections acquired from the diaphragm to the symphysis. 5 mm coronal and sagittal reformats were acquired. For radiation dose reduction, the following was used: automated exposure control, adjustment of mA and/or kV according to patient size. COMPARISON: [facility], CR, XR CHEST 1V, 05/08/2018, 5:18. FINDINGS: Image quality: 2 ABDOMEN: Lung bases: Right basilar atelectasis. Heart size is normal. Solid organs: Liver is normal in size and enhancement. Gallbladder is normal. Biliary system is non dilated. Pancreas enhances normally. Spleen is normal in size and enhancement. No adrenal nodules. Kidneys demonstrate normal size and enhancement, without hydronephrosis. Peritoneum and bowel: Distended small bowel loops measure up to 3 cm in diameter and containing air-fluid levels, compatible with small bowel obstruction. The transitional point is in the mid to lower abdomen is relatively midline (series 2 image [id number] ; series 4 image [id number]), probably within the proximal to mid ileum. Bowel loops demonstrate normal wall thickness and caliber. There are colonic diverticula. No active diverticulitis. colitis which No free fluid or air. Nodes and vessels: No retroperitoneal or mesenteric adenopathy by size criteria. Aorta and inferior vena cava are normal in size. Miscellaneous: There are periumbilical hernias. PELVIS: Genitourinary: Bladder wall thickness is normal. Miscellaneous: No inguinal hernias or adenopathy. Bones: No suspicious bony lesions. No vertebral body compression fractures. Scoliosis and degenerative changes in lumbar spine. IMPRESSION: 1. The CT findings are consistent with small bowel obstruction. 2. Diverticulosis without diverticulitis. 3. Multiple periumbilical ventral hernias. No significant discrepancy with the shift engineer radiology preliminary report. Dictated by: Hermann Aldana M.D. on 05/08/2018 at 7:30 Approved by: Hermann Aldana M.D. on 05/08/2018 at 7:40 Discharge Plan Departure Patient Disposition: Admitted As Inpatient Clinical Impression: Small bowel obstruction Discharge Date/Time: 05/08/18 02:51 Interventions: ED Discharge Assessment Last Done: 05/08/18 02:50 Admit Date/Time: 05/08/18 02:40 Admit Provider: Binh Wilson
[2018-05-08] MEDS: SODIUM CHLORIDE 0.9% 1,000 ML 1000 ML IV (00:50)
[2018-05-08] MEDS: SODIUM CHLORIDE 0.9% 1,000 ML 125 ML IV (03:15)
[2018-05-08] MEDS: MORPHINE 2 MG/ML INJ IV ×3 (04:28→15:23)
--- NOTE | 2018-05-08 05:14 | DI.RAD.S_ITS ---
PROCEDURE: XR CHEST 1V INDICATIONS: NG tube placement TECHNIQUE: One view of the chest was acquired. COMPARISON: None. FINDINGS: Surgical changes and devices: There is a nasogastric tube in the stomach. Lungs and pleura: Pleural thickening or loculated pleural effusion of the left minor fissure. No pneumothorax. Mediastinum: Mediastinal contours appear normal. Heart size is normal. Bones and chest wall: No suspicious bony lesions. Overlying soft tissues appear unremarkable. IMPRESSION: 1. Nasogastric tube in the stomach. 2. Pleural thickening or loculated pleural effusion of the left minor fissure. Dictated by: Hermann Aldana M.D. on 05/08/2018 at 10:01 Approved by: Hermann Aldana M.D. on 05/08/2018 at 10:02
--- NOTE | 2018-05-08 05:19 | PC.NURSE ---
Admitted to room 221 from ER, on admit her LSC was clear. After 30 mins.she was in bed she C/O dyspnea, noted upper airway wheezing. Sat. in RA 91-95%. Co-ordinator notified, medicated with 2 mg. of Morphine. Advanced NGT approx. [address] Wilson notified with the incident stat CXR ordered portable done. DR. Wilson here now to see pt. Pt. oriented to her room, showed how to use her call light & instructed to call for assistance when she needed to get up OOB. Will monitor
--- NOTE | 2018-05-08 06:03 | PC.ADMIT ---
[address] Admission Note: The patient,Kyra Castro,63 y/o, was given written information regarding hospital policies, unit procedures and contact persons. Patient's smoking status: Current every day smoker. Vital Signs - 8 hr 05/07/18 22:31 05/08/18 03:03 05/08/18 04:20 Temperature 99.2 F 98.3 F 98.3 F Pulse Rate 107 H 86 86 Respiratory Rate 20 16 22 Blood Pressure 144/81 H 146/53 H 146/53 H Pulse Oximetry 94 91 91
--- NOTE | 2018-05-08 06:32 | P.HP_ITS ---
History of Present Illness Date Patient Seen: 05/08/18 Time Patient Seen: 06:17 Chief complaint: got off a flight and feels ill Narrative: 63-year-old female who arrives from the [place] area on a flight within the last 1-2 days during which time she noticed she became progressively nauseated and subjectively distended throughout the abdomen. She has not had similar episodes in the past. Her nausea progressed and she began to vomit intermittently. She has also had dry heaving. She describes the emesis is nonbloody and non bilious. Emesis is basically consistent with any recently ingested food. Currently she is completely anorexic and has no desire to eat or drink. Denies any fever or chills subjectively. With the onset of her nausea and other symptoms she has also noticed progressive sharp abdominal pain mostly in the left side of the abdomen. Pain is essentially constant without significant relieving factors such as changing position or even after vomiting. Pain does not radiate to the chest, flank, or back. No groin pain. She has not passed flatus since sometime yesterday. Her last bowel movement was 2 days ago which was normal at that time. She has not had any recent melena, hematochezia, or bright red blood per rectum. Of note, she does have a history of intermittent colitis (type unknown) the most recent episode of which was approximately 2 weeks ago. Generally these episodes result in frequent loose nonbloody stools and some mild crampy abdominal pain and then spontaneously resolve. Currently she is complaining mostly of some persistent epigastric abdominal pain as well as significant discomfort from the nasogastric tube that was inserted in the emergency department several hours ago. Denies any chest pain or shortness of breath. Overall she is quite anxious about the entire episode, complicated by her underlying known significant anxiety disorder for which she is treated. Patient History Medical History Anxiety disorder (Acute) Benign ovarian tumor (Acute) Depression (Acute) Gastroesophageal reflux disease (Acute) History of colitis (Acute) History of diverticulitis (Acute) History of tobacco abuse (Acute) Hyperlipidemia (Acute) Hypothyroidism (Acute) Perforation of colon as colonoscopy complication (Acute) Vitamin D deficiency (Acute) Surgical History History of colonoscopy (Acute) History of foot surgery (Acute) History of incisional hernia repair (Acute) History of unilateral oophorectomy (Acute) Status post partial colectomy (Acute) Family & Social History Family History: Reviewed 05/08/18 by Binh Wilson MD Social History: household members spouse Prior Living Arrangements House Safety & Behavioral: Feels Safe in Current Yes Environment Been Physically Hurt or No Threatened By a Person Suicidal Ideation Description None Suicide Plan Description No Plan Tobacco & Substance use: Tobacco type e-cigarettes Smoking Status Current every day smoker alcohol intake frequency 0-2 drinks per day Substance Use Type does not use Meds Home Medications Medication Instructions Recorded Confirmed Type alprazolam 0.25 mg PO BID 05/08/18 05/08/18 History aspirin [Aspir-Edel] 325 mg PO DAILY 05/08/18 05/08/18 History bupropion HCl 300 mg PO QAM 05/08/18 05/08/18 History cholecalciferol (vitamin D3) 1,000 unit PO DAILY 05/08/18 05/08/18 History [Vitamin D3] glucosamine-chondroitin [Osteo 2 tab PO QPC 05/08/18 05/08/18 History Bi-Flex] levothyroxine [Synthroid] 100 mcg PO DAILY 05/08/18 05/08/18 History mirtazapine 15 mg PO DAILY 05/08/18 05/08/18 History omeprazole 40 mg PO DAILY PRN 05/08/18 05/08/18 History risperidone 1 mg PO DAILY 05/08/18 05/08/18 History vitamin X14-ctuid acid 1 tab PO DAILY 05/08/18 05/08/18 History Allergies Allergy/AdvReac Type Severity Reaction Status Date / Time No Known Drug Allergies Allergy Verified 05/07/18 22:38 Review of Systems Constitutional Constitutional: Denies chills, Denies fever(s), Denies malaise and Denies weakness Eyes Eyes: Denies change in vision, Denies itchy eyes and Denies loss of vision ENT Ears, Nose, Mouth, and Throat: No change in voice, No difficulty swallowing and No pain with swallowing Cardiovascular Cardiovascular: Denies chest pain, Denies chest pain at rest, Denies chest pain with activity, Denies rapid, pounding, or irregular heartbeat and Denies shortness of breath Respiratory Respiratory: Denies cough, Denies dyspnea and Reports wheezing (Chronic) Gastrointestinal Gastrointestinal: Reports as per HPI, Denies dysphagia and Denies odynophagia Genitourinary Genitourinary: Denies hematuria and Denies urinary incontinence Musculoskeletal Musculoskeletal: Denies joint swelling, Denies muscle weakness and Denies numbness Integumentary/Breasts Skin/Breast: Denies change in pigmentation and Denies jaundice Neurologic Neurologic: Denies loss of vision, Denies numbness and Denies weakness Psychiatric Psychiatric: Reports anxiety and Reports depression Endocrine Endocrine: Denies palpitations and Reports other (Hypothyroidism as above) Hematologic/Lymphatic Hematologic/Lymphatic: Denies easy bleeding and Denies easy bruising Allergic/Immunologic Allergic/Immunologic: Denies itchy eyes and Reports wheezing (Chronic) Exam Vital Signs (past 8 hours): - 05/07/18 22:31 05/08/18 03:03 05/08/18 04:20 Temperature 99.2 F 98.3 F 98.3 F Pulse Rate 107 H 86 86 Respiratory Rate 20 16 22 Blood Pressure 144/81 H 146/53 H 140/114 H Pulse Oximetry 94 91 91 Oxygen Delivery Method Room Air Narrative Exam Narrative: Entire visit is performed in the acute care unit hospital bed in the presence of the nurse station cook Patient is sitting upright in the bed somewhat tearful and anxious with nasogastric tube in place. Output through the tube is mostly clear. No bilious fluid. Total output is approximately 100 cc since insertion. However, the tube is not apparently functioning well although auscultation with air bolus through the blue port reveals it to be in the stomach. Sclera nonicteric Neck is supple without lymphadenopathy Chest is clear to auscultation other than some expiratory wheezes bilaterally. No crackles. She has a grade 2 systolic ejection murmur which she states is chronic and has been present for number of years without intervention. Otherwise regular rate and rhythm. No gallops or rubs. Abdomen is mildly distended but not particularly tympanitic. She is moderately obese. She has a well-healed midline abdominal scar from the epigastrium to the suprapubic region. There is a palpable hernia in the epigastric region which is moderately tender but she exhibits no guarding or rebound. She is also tender in the left upper quadrant and left lateral abdominal region but again without guarding or rebound. Extremities show no clubbing, cyanosis, or edema. However, she continuously move her legs and feet as a result of her anxiety. Objective Labs Result Diagrams: 05/07/18 23:05 05/07/18 23:05 Labs: Laboratory Results - last 24 hr 05/07/18 05/07/18 23:05 23:05 WBC 11.3 H RBC 4.74 Hgb 14.3 Hct 42.7 MCV 90.1 MCH 30.1 MCHC 33.4 RDW 13.6 Plt Count 298 Neut % (Auto) 77.2 H Lymph % (Auto) 11.0 L [place] % (Auto) 10.8 Eos % (Auto) 0.6 L Baso % (Auto) 0.4 Neut # (Auto) 8700 H Sodium 143 Potassium 3.9 Chloride 105 Carbon Dioxide 29 BUN 19 H Creatinine 0.80 Estimated GFR > 60.0 BUN/Creatinine Ratio 23.8 H Glucose 139 H Calcium 9.5 Total Bilirubin 0.5 AST 17 ALT 24 Alkaline Phosphatase 78 Total Protein 7.4 Albumin 4.4 Globulin 3.0 Albumin/Globulin Ratio 1.5 I have personally reviewed her CT scan of the abdomen and pelvis done in the emergency department early this morning. I have also obtained a portable chest x-ray at the time of my visit given the questionable function of the nasogastric tube and her significant complaints related to it. The tube was actually coiled quite significantly within the stomach and therefore it was withdrawn quite a distance with immediate return of fluid and normal sump activity via the blue port. Tube was secured at that level. The CT scan shows no free air or free fluid. Gallbladder and uterus remain in situ without obvious pathology. There are several dilated loops of small bowel with few minimal air fluid levels. Transition point appears to be adjacent to or within an obvious incisional hernia sac. No bowel wall thickening. Bowel appears well perfused. Assessment & Plan Plan: Assessment/Plan Narrative: 63-year-old female with partial small bowel obstruction and no evidence of mesenteric ischemia at this time. Bowel obstruction is likely secondary to adhesions possibly within recurrent incisional hernia. At this point she has no compelling indication for emergent surgery. She may very likely respond to nonoperative management consisting of nasogastric tube decompression, bowel rest , and IV fluid resuscitation. We will continue to follow her clinically. Repeat CBC and basic metabolic panel tomorrow. I discussed all the above with her in detail. We will treat her anxiety with intravenous Ativan as needed. DVT prophylaxis with sequential compression devices and Lovenox. Ulcer prophylaxis with IV Protonix. 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 She wishes to receive only intermittent analgesics intravenously as needed when she requests them from the nursing staff. Given the nature of her underlying issue I suspect she will require at least 2 nights in the hospital. Respiratory therapy has been consulted for management of her wheezing with bronchodilator nebulizer therapy as well as incentive spirometry. Supplemental oxygen as needed. She may be out of bed as tolerated with assistance. All questions were answered to her satisfaction, and she voiced understanding. She was agreeable to the plan. Orders were written. Quality VTE Deep Vein Thrombosis/Pulmonary Embolism Present on Admission: No
[2018-05-08] MEDS: BENZOCAINE/MENTHOL 1 LOZ PKT 1 EACH PO (06:50)
[2018-05-08] MEDS: LORazepam 2 MG/ML SYRINGE 1 MG IV (08:18)
[2018-05-08] MEDS: PANTOPRAZOLE 40 MG VIAL IV (08:18)
[2018-05-08] MEDS: ALBUTEROL 2.5 MG/3 ML NEB (ADULT) INH (10:56)
[2018-05-08] MEDS: ENOXAPARIN 40 MG/0.4 ML SYRINGE SUBCUT (11:23)
--- NOTE | 2018-05-08 12:16 | CM.DANOTE ---
DCP: Case received, EMR reviewed, DCP template completed with information currently available. Patient sleeping and not wanting to be disturbed at this time, but will introduce self when patient is up to company. Patient is a 63 year old female who admitted early this am to the care of the hospitalist team. PCP: Patient lives in [place], unknown PCP at this time. Payer: confirmed Medicare/BCBS Out of [facility]. Patient came to hospital early this morning with symptoms of nausea and vomiting. Just came off of a flight from [facility], is here visiting family. Patient carries a diagnosis of small bowel obstruction, and an NG tube was placed this morning. Patient has been sleeping with door closed at this time. P: DCP will continue to assess and meet with patient, regarding plan at discharge. Mallory Morrissey RN/Stopper Maker
[2018-05-08 12:28] LABS: Creatine Kinase 75 U/L (30-135)
[2018-05-08 12:38] LABS: B Type Natriuretic Peptide < 100.0 (<100)
[2018-05-08 12:44] LABS: Troponin I < 0.012 ng/mL (0.01-0.034)
[2018-05-08] MEDS: ALBUTEROL/IPRATROPIUM 3 ML AMPUL INH ×2 (12:55→17:45)
--- NOTE | 2018-05-08 13:45 | P.PN_ITS ---
Subjective Date Patient Seen: 05/08/18 Time Patient Seen: 13:41 Interval history: Patient complaining of some chest pain and mild associated shortness of breath. Had episode of nausea but no vomiting since this morning. Continues to complain of intermittent abdominal pain no different than her admission earlier this morning. However, the intermittent morphine is working well. She continues to refuse NAPHTHALENE OPERATOR. NG output remains mostly clear with no significant bile content. Denies any fever or chills. However, remained subjectively distended. Urinating without difficulty but no flatus or bowel movement today. Exam Vital Signs (past 8 hours): - 05/08/18 07:00 05/08/18 08:00 05/08/18 10:05 Temperature 98.3 F Pulse Rate 79 Respiratory Rate 20 Blood Pressure 137/77 Pulse Oximetry 92 91 93 05/08/18 11:07 05/08/18 12:55 Temperature Pulse Rate 87 Respiratory Rate 17 Blood Pressure Pulse Oximetry 96 96 Oxygen Delivery Method Nasal Cannula Oxygen Flow Rate 1 Narrative Exam Narrative: Remains afebrile and otherwise hemodynamically stable. Lying in bed in no acute distress but does appear mildly ill. Alert oriented x3. No significant wheezes currently. She has received breathing treatments and is now on some nasal cannula oxygen per Respiratory therapy protocol. Abdomen remains mildly distended and tympanitic, especially in the epigastrium. Hernia remains unchanged. She remains tender in the epigastrium and left upper quadrant region but without any involuntary guarding or rebound tenderness at this time. Extremities show no clubbing, cyanosis, or edema Objective Labs Result Diagrams: 05/07/18 23:05 05/07/18 23:05 Labs: Laboratory Results - last 24 hr 05/07/18 05/07/18 05/08/18 23:05 23:05 12:05 WBC 11.3 H RBC 4.74 Hgb 14.3 Hct 42.7 MCV 90.1 MCH 30.1 MCHC 33.4 RDW 13.6 Plt Count 298 Neut % (Auto) 77.2 H Lymph % (Auto) 11.0 L [place] % (Auto) 10.8 Eos % (Auto) 0.6 L Baso % (Auto) 0.4 Neut # (Auto) 8700 H Sodium 143 Potassium 3.9 Chloride 105 Carbon Dioxide 29 BUN 19 H Creatinine 0.80 Estimated GFR > 60.0 BUN/Creatinine Ratio 23.8 H Glucose 139 H Calcium 9.5 Total Bilirubin 0.5 AST 17 ALT 24 Alkaline Phosphatase 78 Total Creatine Kinase 75 Troponin I < 0.012 B-Natriuretic Peptide Total Protein 7.4 Albumin 4.4 Globulin 3.0 Albumin/Globulin Ratio 1.5 05/08/18 12:05 WBC RBC Hgb Hct MCV MCH MCHC RDW Plt Count Neut % (Auto) Lymph % (Auto) [place] % (Auto) Eos % (Auto) Baso % (Auto) Neut # (Auto) Sodium Potassium Chloride Carbon Dioxide BUN Creatinine Estimated GFR BUN/Creatinine Ratio Glucose Calcium Total Bilirubin AST ALT Alkaline Phosphatase Total Creatine Kinase Troponin I B-Natriuretic Peptide < 100.0 Total Protein Albumin Globulin Albumin/Globulin Ratio Twelve lead EKG is obtained due to complaints of chest pain. There are few nonspecific T-wave changes but she is otherwise in normal sinus rhythm with no acute ST changes. We have no EKG for comparison. Cardiac enzymes, however, are completely normal and otherwise unremarkable. Assessment & Plan Plan: Assessment/Plan Narrative: 63-year-old female with partial small bowel obstruction secondary to adhesions most likely who remained stable. Her chest pain episode is most likely related to nasogastric tube discomfort and irritation along with possible esophageal spasm exacerbated by her underlying anxiety disorder. She is feeling better currently at the time of my visit. I informed her that she has no evidence of an acute cardiac event by the above criteria. Abdominal examination remains unchanged she has no evidence of mesenteric ischemia at this time. Continue current non operative management. Repeat abdominal x-rays tomorrow along with laboratory studies as ordered. All questions were answered to her satisfaction , and she voiced understanding. Orders were written. Quality VTE Deep Vein Thrombosis/Pulmonary Embolism Present on Admission: No
--- NOTE | 2018-05-08 15:37 | PC.NURSE ---
day shift pt c/o pain in throat, chest and abd. Notified MD of chest pain and EKG and cardiac enzymes ordered. cardiac enzymes negative. pt also c/o SOB. respiratory therapy consulted and nebulizers given. pt is wheezing and placed on 1L O2 to keep sats >90-92%. on O2, sats around 97-99%. NGT to LIS, output is clear and slightly pink tinged. Pt medicated with morphine when requests. Also gave pt ativan to help with anxiety. She was able to sleep for a few hours this AM. family present on and off throughout the day. hourly rounding provided, call light within reach.
[2018-05-08] MEDS: SODIUM CHLORIDE 0.9% 1,000 ML 150 ML IV (17:47)
--- NOTE | 2018-05-08 21:55 | PC.NURSE ---
Mckenzie shift note: Patient awake and alert, had many family member visit this shift. Patient pleasant and cooperative, continue on O2 at 1L via NC with sats 93-95%. No wheezing noted. NGT to low intermittent suctioning, minimal to none amount of clear drainage. Abdomen continue distended, round, and tender with active BS. Continue NPO, no nausea or vomiting this shift. No SOB noted, patient noted to be anxious due to previous abdominal issues and admission. Reassured patient, declines any pain medication or anti anxiety meds. Call light within reach
[2018-05-09] VITALS (13 sets, daily range): BP systolic 116–150; BP diastolic 60–81; PULSE 76–81; RESP 16–18; TEMP 35.7–37.1; O2SAT 87–97
--- NOTE | 2018-05-09 | DI.RAD.S_ITS ---
PROCEDURE: XR ACUTE ABDOMEN SERIES INDICATIONS: Small-bowel obstruction, pain TECHNIQUE: One view chest and two views of the abdomen were acquired. COMPARISON: [facility], CT, CT ABDOMEN PELVIS W CON, 05/08/2018, 0:44. [facility], CR, XR CHEST 1V, 05/08/2018, 5:18. FINDINGS: Surgical changes and devices: There is a nasogastric tube in the stomach. Chest: Left suprahilar infiltrate is present, suspicious pneumonia. Heart size is mildly increased. No pleural effusions. No pneumoperitoneum. Abdomen: Proximal small bowel loops are distended measuring up to 4.5 cm. There is paucity of distal small bowel gas. No suspicious calcifications. Visualized solid organ contours appear normal. Bones: No suspicious bony lesions. IMPRESSION: 1. Persistent small bowel obstruction. 2. Suspect left suprahilar pneumonia. Dictated by: Hermann Aldana M.D. on 05/09/2018 at 8:34 Approved by: Hermann Aldana M.D. on 05/09/2018 at 8:37
--- NOTE | 2018-05-09 | DI.RAD.S_ITS ---
PROCEDURE: FL SMALL BOWEL FOLLOW THROUGH INDICATIONS: 63 year-old woman with persistent SBO COMPARISON: [facility], CR, XR ACUTE ABDOMEN SERIES, 05/09/2018, 5:28. [facility], CR, XR CHEST 1V, 05/08/2018, 5:18. FINDINGS: KUB: Preprocedural spot man film demonstrates a nasogastric tube in the stomach. There are dilated small bowel loops in the left abdomen and paucity of distal small bowel gas consistent with small bowel obstruction. No suspicious abdominal calcifications. Visualized solid organ contours appear normal. No suspicious bony abnormalities. Small bowel: There is delayed transit time of oral contrast through the small bowel with oral contrast reaching colon in 5.5 hours. Small bowel loops are of elevated measuring up to 4.5 cm. Mucosal folds are smooth and of normal thickness. The distal small bowel loops are decompressed. No intraluminal masses, or extrinsic mass effects are noted. The terminal ileum is identified, and is normal in morphology. IMPRESSION: 1. Dilated small bowel loops and decompressed distal small bowel, consistent with small bowel obstruction. 2. Delayed transit time of oral contrast through small bowel. Dictated by: Hermann Aldana M.D. on 05/09/2018 at 15:06 Approved by: Hermann Aldana M.D. on 05/09/2018 at 15:15
[2018-05-09] MEDS: ONDANSETRON 4 MG/2 ML INJ IV (00:15)
[2018-05-09] MEDS: BENZOCAINE/MENTHOL 1 LOZ PKT 1 EACH PO ×3 (00:22→22:04)
[2018-05-09] MEDS: LORazepam 2 MG/ML SYRINGE 1 MG IV ×2 (00:31→09:56)
[2018-05-09] MEDS: SODIUM CHLORIDE 0.9% 1,000 ML 150 ML IV ×3 (01:35→22:04)
[2018-05-09 05:17] LABS: Add Manual Diff / Slide Review NO; Basophils Percent Auto 0.2 % (0-2); Eosinophils Percent Auto 1.3 % (2-4); Hematocrit 35.1 % (36-46); Hemoglobin 11.9 g/dL (12.0-16.0); Lymphocytes Percent Auto 14.7 % (25-40); Mean Corpuscular HGB Conc 33.8 % (30-36); Mean Corpuscular Hemoglobin 30.5 PG (26-34); Mean Corpuscular Volume 90.2 fL (80-100); Monocytes Percent Auto 12.4 % (3-14); Neutrophils Absolute Auto 5500 /uL (3000-5900); Neutrophils Percent Auto 71.4 % (50-75); Platelet Count 209 X10^3/uL (150-400); Red Blood Cell Count 3.89 X10^6/uL (4.0-5.2); Red Cell Distribution Width 13.9 % (11.6-14.8); White Blood Cell Count 7.7 X10^3/uL (4.5-11.0)
[2018-05-09 05:20] LABS: Blood Urea Nitrogen 15 mg/dL (7-17); Calcium 8.4 mg/dL (8.4-10.2); Carbon Dioxide 32 mmol/L (22-32); Chloride 108 mmol/L (98-107); Estimated Glomerular Filt Rate > 60.0 mL/min (>60); Glucose 102 mg/dL (80-110); HEMOLYSIS < 15 (0-50); Potassium 3.9 mmol/L (3.4-5.1); Sodium 144 mmol/L (137-145)
[2018-05-09 05:23] LABS: Lactate (Lactic Acid) < 0.5 mmol/L (0.7-2.1)
--- NOTE | 2018-05-09 06:51 | PC.NURSE ---
Slept most of the shift after medicated with 1 mg. of Lorazepam IVP. Denies any abdominal pain & nausea this morning, refused her routine Zofran @ 0600. Reported passing flatus last night, will monitor.
[2018-05-09] MEDS: ALBUTEROL/IPRATROPIUM 3 ML AMPUL INH ×2 (08:41→19:49)
[2018-05-09] MEDS: ENOXAPARIN 40 MG/0.4 ML SYRINGE SUBCUT (09:20)
[2018-05-09] MEDS: PANTOPRAZOLE 40 MG VIAL IV (09:20)
[2018-05-09] MEDS: MORPHINE 2 MG/ML INJ IV (09:59)
--- NOTE | 2018-05-09 13:55 | P.PN_ITS ---
Subjective Date Patient Seen: 05/09/18 Time Patient Seen: 13:49 Interval history: Pain has diminished but still having occasional crampy with intermittent sharp pain in the left upper quadrant region. Still feels somewhat subjectively distended although minimally improved since yesterday. No further nausea or vomiting. Complaining of some throat irritation from the nasogastric tube but this is also getting better today. Remains anxious overall. Did pass some flatus yesterday and again this morning. No bowel movement. No dysuria or hematuria. Denies any subjective fever or chills. No further chest pain or shortness of breath. Exam Vital Signs (past 8 hours): - 05/09/18 07:48 05/09/18 08:44 05/09/18 09:10 Temperature 98.8 F Pulse Rate 77 Respiratory Rate 16 Blood Pressure 128/81 Pulse Oximetry 95 93 93 05/09/18 09:14 05/09/18 09:15 Temperature Pulse Rate Respiratory Rate Blood Pressure Pulse Oximetry 87 L 93 Oxygen Delivery Method Nasal Cannula Oxygen Flow Rate 2 Narrative Exam Narrative: Patient lying in left lateral decubitus position in bed in no acute distress. She is somewhat somnolent having recently received Ativan and morphine intravenously for anxiety during her small-bowel follow-through study which is in progress. Her is at the bedside. Patient seen and examined with the assistance of the nurse end finder twisting department, Gale Garrett nonicteric Nasogastric tube remains in place collecting bilious fluid now. However, volume still is not particularly significant. Chest is clear to auscultation with few minimal left expiratory wheezes only. No crackles. No rhonchi. Regular rate and rhythm. She has good cough effort. No productive cough. Abdomen remains slightly distended but not particularly tympanitic. Epigastric hernia along the incision is unchanged. She remains tender in the left upper quadrant but without guarding or rebound. No masses. She does have active bowel sounds. Extremities show no clubbing or cyanosis Objective Labs Result Diagrams: 05/09/18 04:57 05/09/18 04:57 Labs: Laboratory Results - last 24 hr 05/09/18 05/09/18 05/09/18 04:57 04:57 04:57 WBC 7.7 RBC 3.89 L Hgb 11.9 L Hct 35.1 L MCV 90.2 MCH 30.5 MCHC 33.8 RDW 13.9 Plt Count 209 Neut % (Auto) 71.4 Lymph % (Auto) 14.7 L [place] % (Auto) 12.4 Eos % (Auto) 1.3 L Baso % (Auto) 0.2 Neut # (Auto) 5500 Sodium 144 Potassium 3.9 Chloride 108 H Carbon Dioxide 32 BUN 15 Creatinine 0.60 Estimated GFR > 60.0 BUN/Creatinine Ratio 25.0 H Glucose 102 Lactate < 0.5 L Calcium 8.4 laboratory studies are reviewed. No remarkable findings. Plain abdominal radiographs done this morning showed no free air but ongoing small-bowel dilatation. There is some air in the colon however. Small-bowel follow-through study is still in progress approaching the 4 hr fabiano. Final films are not yet available. Assessment & Plan Plan: Assessment/Plan Narrative: 63-year-old female with partial small bowel obstruction but no evidence of mesenteric ischemia or other significant intra-abdominal process at the moment. We will continue non operative management for now. Awaiting results of the small-bowel follow-through. We will obtain a follow-up plain abdominal x-ray tomorrow. Continue nasogastric tube and IV fluid hydration. I did mention to the patient and her that she may require PICC line and TPN within the next 24-48 hours if she remains NPO status due to the obstruction. I remain hopeful that she will eventually resolve the bowel obstruction spontaneously without surgical intervention, but I reiterated to the patient and informed the that if she does not improve over the next several days or she shows any signs of deterioration that she would require laparotomy. Encouraged her to be out of bed and ambulating aggressively with assistance. All questions were answered to her satisfaction, and she voiced understanding. Orders were written. Quality VTE Deep Vein Thrombosis/Pulmonary Embolism Present on Admission: No
--- NOTE | 2018-05-09 14:42 | PC.NURSE ---
day shift order for small bowel follow through study. contrast administered this AM and NGT clamped. started xray images at bedside. around 0955 pt started having anxiety/panic attack. Legs constantly twitching and pt very tearful, stating abd started hurting again. medicated with ativan and morphine. Pt also had family members come visit her shortly afterwards and she then was able to calm down. later in afternoon, pt did have 2 large bowel movements. first was about 800 ml of dark brown liquid with some soft chunks, 2nd was human service specialist brown and straight liquid. xray taken for study after first BM. pt in much better spirits following bowel movements.
--- NOTE | 2018-05-09 22:37 | PC.NURSE ---
Assumed care of pt form outgoing shift at 1500 9-11. Pt asleep in bed, NG tub clamped per MD order. will await other orders, pt denies pain, mild discomfort to llq. see assessment. Pt uses call light. mild anxiety noted. belongings and call light within reach, pt up to bsc with bm and void. small chunks of stool along with mostly watery diarrhea. ambulates steady gait. 1600- pt up in chair. belongings and call light within reach. tolerating fluids. suction hooked up per MD order. tolerating. will continue to monitor. 1999- pt given throat lozenges as pt states her throat is just really sore, ng tube suction mildly orange tinged d/t throat lozenge. pt has minimal ice chips. see output. 2200-still denies pain. pt slept on and off through the shift. verbalized understanding. given prns, denies nausea. will continue to monitor.
[2018-05-10] VITALS (15 sets, daily range): BP systolic 127–154; BP diastolic 67–90; PULSE 61–84; RESP 16–20; TEMP 36.4–37.2; O2SAT 90–98
[2018-05-10] MEDS: ONDANSETRON 4 MG/2 ML INJ IV (00:05)
[2018-05-10] MEDS: MORPHINE 2 MG/ML INJ IV (00:05)
[2018-05-10] MEDS: SODIUM CHLORIDE 0.9% 1,000 ML 150 ML IV (04:54)
[2018-05-10] MEDS: LORazepam 2 MG/ML SYRINGE 1 MG IV (05:03)
--- NOTE | 2018-05-10 05:13 | PC.NURSE ---
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 Pt having some anxiety, medicated with Ativan to help. Pt up to BSC and had atery BM. Now sitting in the bedside chair. Using her I.S, remains on 1L O2 with sats 94-96%. wheezes and has occasional harsh cough. RT in to treat.
[2018-05-10] MEDS: ALBUTEROL/IPRATROPIUM 3 ML AMPUL INH ×2 (05:16→20:32)
--- NOTE | 2018-05-10 05:26 | RT ---
SUGGESTED POSSIBLE FLUID OVERLOAD TO RN.
--- NOTE | 2018-05-10 07:00 | DI.RAD.S_ITS ---
PROCEDURE: XR ABDOMEN MIN 2V INDICATIONS: follow up for small bowel follow through. check degree of distention of small bowel TECHNIQUE: 2 views of the abdomen were acquired. COMPARISON: [facility], CR, XR ACUTE ABDOMEN SERIES, 05/09/2018, 5:28. FINDINGS: Surgical changes and devices: Enteric tube tip is in the region of stomach lumen and is below the left hemidiaphragm. Bowel: No pneumoperitoneum. Oral contrast material is seen throughout the colon extending to rectum. A few air distended small bowel loops are noted in mid abdomen. No gross free air is noted. Soft tissues: No masses; visualized solid organ contours appear normal in size. No suspicious abdominal calcifications. Bones: No suspicious bony abnormalities. IMPRESSION: Finding is suggestive of resolving small bowel obstruction. Oral contrast material is now seen extending to the rectum. No gross free air. Dictated by: Kristofer Purcell M.D. on 05/10/2018 at 9:14 Approved by: Kristofer Purcell M.D. on 05/10/2018 at 9:35
--- NOTE | 2018-05-10 09:02 | P.PN_ITS ---
Subjective Date Patient Seen: 05/10/18 Time Patient Seen: 08:56 Interval history: Denies nausea or vomiting. Pain has subsided significantly although she is still having some mild discomfort in the left upper quadrant region. Denies chest pain or shortness of breath. No dysuria. She had significant flatus and liquid stool output throughout the night and again this morning following the small-bowel follow-through study yesterday. Exam Vital Signs (past 8 hours): - 05/10/18 04:00 05/10/18 05:17 05/10/18 06:08 Temperature 98.2 F Pulse Rate 75 76 Respiratory Rate 16 16 Blood Pressure 152/82 H Pulse Oximetry 97 96 96 Oxygen Delivery Method Nasal Cannula Oxygen Flow Rate 1 Narrative Exam Narrative: Patient lying comfortably in bed in no acute distress. Alert oriented x3. She appears to be in much better spirits this morning. Nasogastric tube remains in place with only about 200 cc of relatively clear but mildly blood-tinged fluid in the canister. No bilious output. Chest is clear to auscultation this morning with no wheezes or crackles. Regular rate and rhythm. Good cough effort. Abdomen is much softer and less distended today. She is not tympanitic this morning. She remains mildly tender in the left upper quadrant region but certainly this has improved since admission. No guarding or rebound. No masses. Extremities show no clubbing, cyanosis, or edema Objective Labs Result Diagrams: 05/09/18 04:57 05/09/18 04:57 Labs: No new laboratory studies for review I have personally reviewed her small-bowel follow-through study from yesterday and her two view abdominal x-rays from this morning. She has contrast in the colon after 5-1/2 hours yesterday. This morning she has contrast throughout the entire colon to the rectum. Few residual mildly dilated loops of small bowel in the left upper quadrant region but no significant air-fluid levels today. Overall the bowel gas pattern appears improved compared to initial x- rays. No free air. No significant pleural effusions. Assessment & Plan Plan: Assessment/Plan Narrative: 63-year-old female who is improving with regard to her partial small-bowel obstruction. We will discontinue the nasogastric tube this morning and allow her some clear liquids by mouth. Restart her usual home medications, especially for her anxiety disorder. Decrease IV fluid significantly as she is adequately volume resuscitated at this time. She may shower. Ambulate aggressively in the hallways. Wean oxygen to room air for saturation greater than 91%. Continue albuterol nebulizers as needed. Again encouraged aggressive pulmonary toilet and incentive spirometry. Continue gentle laxative therapy as she clears the contrast from the colon. If she tolerates a diet of liquids today and continues to show improvement with ongoing bowel function then we could potentially advance her to a regular diet this evening or 1st thing tomorrow morning. We discussed the criteria for discharge once the bowel obstruction appears to be completely resolved. At the earliest she would be potentially able to of leave the hospital tomorrow, but this again depends on how she does throughout the day today. She understands, however, that the obstruction could persist or recur. All questions were answered to her satisfaction, and she voiced understanding. Orders were written. Quality VTE Deep Vein Thrombosis/Pulmonary Embolism Present on Admission: No
[2018-05-10] MEDS: ENOXAPARIN 40 MG/0.4 ML SYRINGE SUBCUT (09:44)
[2018-05-10] MEDS: MAGNESIUM HYDROXIDE 30 ML UDC PO ×2 (09:44→20:48)
[2018-05-10] MEDS: ALPRAZolam 0.25 MG TABLET PO ×2 (09:44→20:48)
[2018-05-10] MEDS: PANTOPRAZOLE 40 MG VIAL IV (09:44)
[2018-05-10] MEDS: buPROPion XL 150 MG TAB 300 MG PO (13:41)
[2018-05-10] MEDS: risperiDONE 1 MG TABLET PO (13:41)
[2018-05-10] MEDS: SODIUM CHLORIDE 0.9% 1,000 ML 60 ML IV (13:41)
--- NOTE | 2018-05-10 14:46 | PC.NURSE ---
GI: SI feel so much better getting something to eat. Up and amb out in hallways. Also took a shower. After her company leaves will amb again. Diet cl liq tolerated w/out problems. Still feels bloated and gassy, had a sm bm this shift but did enc pt to take diet slowly. She is happy the ngt is out now. Hopes to d/c home tomorrow. Cont w/poc.
[2018-05-10] MEDS: MIRTAZAPINE 15 MG TABLET PO (20:48)
--- NOTE | 2018-05-10 22:17 | PC.NURSE ---
Pt had a much better day, with NGT out. pt family in throughout shift to visit with pt. 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 PT tolerates well. still having very watery stool. only wanted half of milk of mag as she states she is very sensitive to bowel medications. Pt up with SBA to BR. uses briefs as sometimes unable to hold stool before she gets to br. belongings and call light within reach, will continue to monitor pt for safety.
[2018-05-11] VITALS (11 sets, daily range): BP systolic 123–146; BP diastolic 55–77; PULSE 66–79; RESP 16–20; TEMP 36.7–37.6; O2SAT 85–95
--- NOTE | 2018-05-11 | DI.RAD.S_ITS ---
PROCEDURE: XR ACUTE ABDOMEN SERIES INDICATIONS: recurrent pain, distension, vomiting TECHNIQUE: One view chest and two views of the abdomen were acquired. COMPARISON: [facility], CR, XR ABDOMEN MIN 2V, 05/10/2018, 5:34. [facility], CT, CT ABDOMEN PELVIS W CON, 05/08/2018, 0:44. [facility], CR, XR CHEST 1V, 05/08/2018, 5:18. [facility], CR, XR ACUTE ABDOMEN SERIES, 05/09/2018, 5:28. FINDINGS: Surgical changes and devices: None. Chest: Basilar opacities are most likely atelectasis. Heart size is normal. No pleural effusions. No pneumoperitoneum. Abdomen: Proximal small bowel loops are mildly distended measuring up to 5.3 cm. Multiple air fluid levels are present in mid abdomen. There is paucity of distal small bowel gas. The findings are consistent with small bowel obstruction which is worsened compared the last exam on 05/10/2013. No suspicious calcifications. Visualized solid organ contours appear normal. Bones: No suspicious bony lesions. IMPRESSION: Worsening of small bowel obstruction. Dictated by: Hermann Aldana M.D. on 05/11/2018 at 18:52 Approved by: Hermann Aldana M.D. on 05/11/2018 at 18:55
[2018-05-11] MEDS: ALBUTEROL/IPRATROPIUM 3 ML AMPUL INH (05:48)
[2018-05-11] MEDS: SODIUM CHLORIDE 0.9% 1,000 ML 60 ML IV (06:52)
--- NOTE | 2018-05-11 07:47 | PM.PN.1 ---
Subjective Date Patient Seen: 05/11/18 Time Patient Seen: 07:47 Interval history: Slept well overnight. No new complaints of nausea or vomiting. Tolerated full liquids last night for dinner. Continues to have flatus and multiple liquid bowel movements. Some fecal urgency as well. States that just prior to bowel function she feels crampy some what transiently sharp pain in the left upper quadrant region as before but not as intense as when she 1st came to the emergency department. Pain subsides relatively quickly as she moved her bowels shortly thereafter. Denies melena, hematochezia, or bright red blood per rectum. No dysuria or hematuria. Denies any subjective fever or chills. No chest pain or shortness of breath. Overall, she states she is feeling better today. Exam Vital Signs (past 8 hours): - 05/10/18 23:56 05/11/18 05:49 05/11/18 05:52 Temperature 98.1 F 98.6 F Pulse Rate 66 66 Respiratory Rate 16 16 Blood Pressure 127/67 123/58 L Pulse Oximetry 90 L 93 91 Oxygen Delivery Method Room Air Oxygen Flow Rate 0 Narrative Exam Narrative: Well-nourished well-developed female in no acute distress lying comfortably in bed sleeping at the time of my visit. She is easily arousable however. Alert oriented x3. Regular rate and rhythm No wheezes Abdomen is soft and mildly tender in the left upper quadrant as before but certainly with no guarding or rebound. She is actually less tender than at the time of her admission. I appreciate no masses. Hernia remains unchanged. Extremities show no clubbing, cyanosis, or edema Objective Labs Result Diagrams: 05/09/18 04:57 05/09/18 04:57 Labs: No new radiographic or laboratory studies for review today Assessment & Plan Plan: Assessment/Plan Narrative: 63-year-old female with resolving partial small bowel obstruction. She is having bowel function and tolerating full liquids. I anticipate that the crampy abdominal pain she is experiencing: Sides with bowel function and is evidence of slow resolution of the small-bowel obstruction. She has not moved her bowels prior to admission for several days, and I informed her that she is likely to continue to pass liquid stool for several more days until she returns to baseline bowel function. Today we will advance her to a regular diet. Saline lock the IV. She may continue to shower and ambulate as tolerated. She is stable on room air. Encouraged ongoing pulmonary toilet with coughing and incentive spirometry. She is stable on her baseline home medications. If she continues to improve and tolerates a regular diet she may be able to leave the hospital this afternoon or tomorrow morning depending upon clinical status. She plans to return to her home on the [facility] with her 2 days from now. I advised her to follow up with her family physician upon her return home. We will see how she does through the course of the day today. All the above discussed with the patient in detail. Questions were answered to her satisfaction, and she voiced understanding. Orders were written. Quality VTE Deep Vein Thrombosis/Pulmonary Embolism Present on Admission: No
[2018-05-11] MEDS: ENOXAPARIN 40 MG/0.4 ML SYRINGE SUBCUT (08:01)
[2018-05-11] MEDS: ALPRAZolam 0.25 MG TABLET PO ×2 (08:02→20:08)
[2018-05-11] MEDS: buPROPion XL 150 MG TAB 300 MG PO (08:02)
[2018-05-11] MEDS: risperiDONE 1 MG TABLET PO (08:02)
[2018-05-11] MEDS: PANTOPRAZOLE 40 MG VIAL IV (08:02)
[2018-05-11] MEDS: ONDANSETRON 4 MG/2 ML INJ IV ×2 (12:10→20:08)
--- NOTE | 2018-05-11 14:03 | PC.NURSE ---
Patient not feeling well this afternoon, given zofran and assisted into bed to rest. Still passing liquid brown stool, reported some urgency still with this. Voiding without difficulty. States she is just so exhausted and not feeling well today. Appears discouraged. Dr. Wilson updated. order to return to full liquids received. Will continue to follow patient.
[2018-05-11] MEDS: DEXTROSE 5%-NS W/KCL 20MEQ 1,000 ML 100 MEQ IV (18:16)
[2018-05-11] MEDS: MIRTAZAPINE 15 MG TABLET PO (20:08)
[2018-05-11] MEDS: LORazepam 2 MG/ML SYRINGE 1 MG IV (22:53)
[2018-05-12] VITALS (24 sets, daily range): BP systolic 96–138; BP diastolic 54–88; PULSE 73–98; RESP 15–30; TEMP 36.1–37.4; O2SAT 89–98; BMI 37.5
[2018-05-12] MEDS: ONDANSETRON 4 MG/2 ML INJ IV ×3 (01:08→08:46)
[2018-05-12] MEDS: DEXTROSE 5%-NS W/KCL 20MEQ 1,000 ML 100 MEQ IV (05:25)
[2018-05-12 06:34] LABS: Add Manual Diff / Slide Review NO; Basophils Percent Auto 0.2 % (0-2); Eosinophils Percent Auto 1.3 % (2-4); Hematocrit 34.3 % (36-46); Hemoglobin 11.5 g/dL (12.0-16.0); Lymphocytes Percent Auto 10.8 % (25-40); Mean Corpuscular HGB Conc 33.5 % (30-36); Mean Corpuscular Hemoglobin 30.2 PG (26-34); Mean Corpuscular Volume 90.1 fL (80-100); Monocytes Percent Auto 11.8 % (3-14); Neutrophils Absolute Auto 5700 /uL (3000-5900); Neutrophils Percent Auto 75.9 % (50-75); Platelet Count 228 X10^3/uL (150-400); Red Blood Cell Count 3.81 X10^6/uL (4.0-5.2); Red Cell Distribution Width 13.1 % (11.6-14.8); White Blood Cell Count 7.5 X10^3/uL (4.5-11.0)
[2018-05-12 06:39] LABS: Alanine Aminotransferase 27 IU/L (9-52); Albumin 3.2 g/dL (3.5-5.0); Albumin Globulin Ratio 1.3 (1.0-2.8); Alkaline Phosphatase 52 U/L (38-126); Aspartate Aminotransferase 17 IU/L (14-36); Bilirubin Total 0.2 mg/dL (0.2-1.3); Blood Urea Nitrogen 12 mg/dL (7-17); Calcium 8.2 mg/dL (8.4-10.2); Carbon Dioxide 33 mmol/L (22-32); Chloride 104 mmol/L (98-107); Estimated Glomerular Filt Rate > 60.0 mL/min (>60); Globulin 2.5 g/dL (1.7-4.1); Glucose 127 mg/dL (80-110); HEMOLYSIS < 15 (0-50); Potassium 3.2 mmol/L (3.4-5.1); Sodium 144 mmol/L (137-145); Total Protein 5.7 g/dL (6.3-8.2)
[2018-05-12] MEDS: ENOXAPARIN 40 MG/0.4 ML SYRINGE SUBCUT (08:46)
[2018-05-12] MEDS: ALPRAZolam 0.25 MG TABLET PO (08:46)
[2018-05-12] MEDS: PANTOPRAZOLE 40 MG VIAL IV (08:46)
[2018-05-12] MEDS: buPROPion XL 150 MG TAB 300 MG PO (08:46)
[2018-05-12] MEDS: risperiDONE 1 MG TABLET PO (08:47)
[2018-05-12] MEDS: LEVOTHYROXINE 100 MCG TABLET PO (08:47)
[2018-05-12] MEDS: LORazepam 2 MG/ML SYRINGE 1 MG IV ×2 (10:20→16:11)
[2018-05-12] MEDS: LACTATED RINGERS 1,000 ML 42 ML IV ×2 (10:48→12:19)
[2018-05-12] MEDS: CEFOTETAN 2 GM/50 ML PIGGYBACK IV ×2 (11:25→22:17)
--- NOTE | 2018-05-12 11:57 | SUR.OPER ---
Supine on padded OR bed, head on pillow, arms secured on padded arm boards at <90 degrees abduction, legs uncrossed, safety belt at thigh, tape over blanket over lower legs.
[2018-05-12] MEDS: BUPIVACAINE 0.5% (PF) VIAL 30 ML INJ (13:30)
[2018-05-12] MEDS: LIDOCAINE 1% W/EPI INJ 20 ML INJ (13:30)
[2018-05-12] MEDS: fentaNYL 100 MCG/2 ML INJ 50 MCG IV ×2 (13:55→14:01)
[2018-05-12] MEDS: HYDROMORPHONE 2 MG INJ 0.5 MG IV ×2 (14:11→14:42)
[2018-05-12] MEDS: ALBUTEROL 2.5 MG/3 ML NEB (ADULT) INH (14:19)
--- NOTE | 2018-05-12 14:26 | PC.NURSE ---
NG tube placed at ~ [address] Lin verbal - preoperative. 800ml out before transfer to surgical services at ~ 1030. Pt still off acute floor as of 1440.
--- NOTE | 2018-05-12 14:38 | SUR.PHASEI ---
patient with some upper airway stridor and reports some tightness with breathing RR 30-36 02 sats 92-93 on 5L via simple mask. Patient given neb treatment minimal relief. Patient alert, oriented Dr. awad to bedside for eval. Pt not in distess and to continue continuous pulse ox monitor on floor. At this time patient sating 93% 5L via nc and breathing 20 bpm. appears relaxed and audible stridor not heard.
--- NOTE | 2018-05-12 15:10 | SUR.PHASEI ---
Patient transferred to room 221 with RN. Bedside report given to Beck TRAVIS. Patient remains on 5lpm via nc with o2 sats at 93%. Patient 3/10 on pain scale prior to transport. 5/10 upon arrival to floor. RN to start pain pump. patient alert and oriented, VSS, family at bedside.
[2018-05-12] MEDS: HYDROMORPHONE PCA 6 MG/30 ML PCA.VIAL IV ×2 (15:43→22:32)
[2018-05-12] MEDS: DEXTROSE 5%-0.45% NS 1,000 ML 125 ML IV ×2 (15:45→23:50)
--- NOTE | 2018-05-12 17:45 | PM.OP.1 ---
Operative Date/Time/Diagnoses Date of procedure: 05/12/18 Time of procedure: 14:46 Pre-op diagnosis: Small-bowel obstruction Post-op diagnosis: same Procedure & Clinicians Procedure: Laparotomy with lysis of adhesions and repair of large incisional hernia Same procedure as scheduled: Yes Indications: Kyra is a pleasant 63-year-old lady with an extensive past medical history. She was admitted to our service with symptoms of small-bowel obstruction that initially responded to conservative management. An upper GI with study small-bowel follow-through showed an area of high-grade but partial obstruction in the mid ileum. This seemed to get better immediately after the study. Unfortunately, yesterday afternoon she became distended once again and began vomiting feculent material. She is now brought to the operating room to undergo exploratory laparotomy with relief of this small bowel obstruction. Surgeon: Juanita Henderson Click Yes if Unassisted: Yes Anesthesia Type: General (saei) Operative Notes Findings: 1. High-grade small bowel obstruction in about the mid ileum secondary to adhesions 2. Large incisional hernia containing twisted omentum and tethering the small bowel. 3. No evidence of bowel ischemia. Closure Type: primary Specimen(s): none sent Applied: catheter Estimated Blood Loss (mL): 50 Procedure in detail: After obtaining informed consent, the patient is brought to the operating room and placed in supine position on the operating table. Following successful induction of general endotracheal anesthesia, appropriate padding of all bony prominences, and placement of appropriate monitors, the abdomen is prepped and draped in standard surgical fashion. A time-out was held per [facility]COAP protocol. Following infiltration with local anesthetic to create a field block, the existing midline incision was reopened from the umbilicus inferiorly for approximately 10 cm and carried down through the skin and subcutaneous tissue. Once the fascia was reached, I was able to palpate a hernia defect just inferior to the umbilicus. Careful dissection with Metzenbaum scissors revealed a large hernia sac. I was able to identify the peritoneal cavity and eventually to enter it without injury to any segment of bowel. Once in the peritoneal cavity, I was able to wipe adhesions from the internal surface of the midline so that the incision could be opened safely through the fascia. Minimal herniation was identified inferior to the umbilicus with only an approximately 4 cm opening in that region. We immediately encountered distended and edematous loops of small bowel. These were juxtaposed with very thin pink small caliber bowel. We began the procedure by following the most proximal segment that could be identified distally. Careful lysis of adhesions was continued in a systematic fashion until a definite point of obstruction was identified in the mid to distal ileum. It was at this point that an adhesion connecting the omentum incarcerated within a more proximal hernia defect incased this loop of ileum and pulled it up to the abdominal wall and constricted its opening. This loop was gently released. Once this lipid been released the remainder of the bowel began to open up and looked more normal. At this time the more abdominal wall was investigated more superiorly. Multiple defects were appreciated extending for a total length of 26 cm. I did not feel comfortable repairing these defects with mesh in the setting of this distended and insulted bowel. The entire abdomen was checked for hemostasis at this time. The NG tube was checked for position. It was irrigated with warm saline solution and aspirated free of all fluid and particulate matter. I elected to repair the hernia directly with a combination of a running looped Maxon suture with internal retention sutures of Ethibond. The closure was noted to be tight but we were able to approximate the edges of the abdomen and close it without any evidence of intra-abdominal compartment syndrome. The abdominal incision was then irrigated copiously with warm saline solution. The subcutaneous tissue was reapproximated and clips were applied in the skin. An Aquacel dressing was applied to the incision and an abdominal binder placed over the abdomen for support. All sponge, needle, and instrument counts were correct at the conclusion of the case. The patient was allowed to wake from anesthesia without significant difficulty and taken to the postanesthesia care unit in good condition. Complications: none Condition: stable Disposition: PACU Plan for aftercare: Admit to acute care for continued convalescence and supportive care
[2018-05-12] MEDS: KETOROLAC 30 MG/ML VIAL IV ×2 (19:11→23:44)
--- NOTE | 2018-05-12 21:30 | PC.NURSE ---
Pt arrived to floor at 1500, assumed care from outgoing shift. Pt awake. answers questions, oriented. crying. legs shaking, pt states pain is 3/10 but family members state she downplays her pain and they believe she is having more pain. RADIATION CONTROL TECHNICIAN started, given ativan per MAR. to help relax muscle. Pt denies nausea, ngt to int suction. abdominal binder on. small spots to lower part of aquacel dressing. bt absent at this time. Pt has ice to abdomen. uses call light. checked on frequently. Pt crying around 1530 and staying I don't want to be a burden or a bad patient reinforced pt is not any of those, given much encouragement. pt tears wiped away and pt states she hurts, encouraged to use RADIATION CONTROL TECHNICIAN pump and explained use to family. garcia patent. will continue to monitor. bed alarm on, side rails up x4 per request. Pt family at bedside. 190- new IV started as old site ,. will continue to monitor.
[2018-05-13] VITALS (9 sets, daily range): BP systolic 97–107; BP diastolic 50–65; PULSE 73–80; RESP 16–20; TEMP 36.2–37.1; O2SAT 90–96
[2018-05-13 05:30] LABS: BUN Creatinine Ratio 21.4 (6-22); Blood Urea Nitrogen 15 mg/dL (7-17); Carbon Dioxide 33 mmol/L (22-32); Chloride 103 mmol/L (98-107); Estimated Glomerular Filt Rate > 60.0 mL/min (>60); Glucose 133 mg/dL (80-110); HEMOLYSIS < 15 (0-50); Potassium 3.7 mmol/L (3.4-5.1); Sodium 142 mmol/L (137-145)
[2018-05-13] MEDS: KETOROLAC 30 MG/ML VIAL IV ×3 (05:46→18:45)
[2018-05-13] MEDS: HYDROMORPHONE PCA 6 MG/30 ML PCA.VIAL IV ×3 (05:51→22:02)
[2018-05-13] MEDS: DEXTROSE 5%-0.45% NS 1,000 ML 125 ML IV ×2 (07:48→16:04)
[2018-05-13] MEDS: ENOXAPARIN 40 MG/0.4 ML SYRINGE SUBCUT (09:34)
--- NOTE | 2018-05-13 10:50 | PC.NURSE ---
AM NOTE - awakens easily, drowsy, pain well controlled w/ assistant plant control operator 0.1mg/hr contin and demand 0.2/10/6mg, wearing abd binder over aquacell dsg with some shadow drainage distal end within margins, bt are present, ng LIS w/pale, chu, thin fluid in tubing, 2l 96%, hr reg 78, sced w/1+ pedal edema, garcia w/small qty concentrated urine, deflated balloon and advanced and reinflated for flow of urine in tubing as pt felt urge void, , repositioned w/hob 30degrees., when sister arrived, pt became tearful and more anxious and req med, given 1mg iv ativan.
[2018-05-13] MEDS: LORazepam 2 MG/ML SYRINGE 1 MG IV ×2 (11:02→19:01)
[2018-05-13] MEDS: CEFOTETAN 2 GM/50 ML PIGGYBACK IV (11:17)
[2018-05-13] MEDS: METOCLOPRAMIDE 10 MG/2 ML INJ 5 MG IV ×2 (13:55→22:04)
--- NOTE | 2018-05-13 14:58 | PM.PN.1 ---
Subjective Date Patient Seen: 05/13/18 Time Patient Seen: 14:58 Interval history: Kyra is very pleasant and seems fairly comfortable today. She says her pain is well controlled and denies any nausea. Staff reports she got upset when her family came to visit and required Ativan but has otherwise done well. Urine output has been noted to be decreased. NGT is drainage is thin and brown and no longer feculent. She has not been out of bed today and staff has not push her terribly strong way since she was so uncomfortable post surgery. Exam Vital Signs (past 8 hours): - 05/13/18 07:35 05/13/18 09:18 05/13/18 09:19 Temperature 97.2 F L Pulse Rate 78 Respiratory Rate 18 Blood Pressure 97/50 L Pulse Oximetry 96 95 94 05/13/18 11:50 05/13/18 11:56 Temperature 97.2 F L 97.2 F L Pulse Rate 78 78 Respiratory Rate 18 16 Blood Pressure 100/54 L 100/54 L Pulse Oximetry 95 95 Oxygen Delivery Method Room Air Oxygen Flow Rate 2 Narrative Exam Narrative: Lungs: Clear to auscultation bilaterally Heart: Regular rate and rhythm Abdomen: Soft, active bowel sounds, incision is clean and dry and intact with aqua po in place. Extremities: Trace edema bilaterally Objective Labs Result Diagrams: 05/12/18 05:51 05/13/18 05:10 Labs: Laboratory Results - last 24 hr 05/13/18 05:10 Sodium 142 Potassium 3.7 Chloride 103 Carbon Dioxide 33 H BUN 15 Creatinine 0.70 Estimated GFR > 60.0 BUN/Creatinine Ratio 21.4 Glucose 133 H Calcium 8.0 L Assessment & Plan Plan: Assessment/Plan Narrative: 1. Start very low-dose Reglan. Should not be an interaction problem since we did not give her any Haldol and were not able to continue her other psych meds. We will also continue as needed Ativan 2. Lead NG tube in place. 3. Bolus IV fluid for decreased urine output. 4. Mobilize to the chair in the a.m.. Quality VTE Deep Vein Thrombosis/Pulmonary Embolism Present on Admission: No
[2018-05-13] MEDS: LACTATED RINGERS 1,000 ML 1000 ML IV ×2 (15:49→19:12)
--- NOTE | 2018-05-13 22:35 | PC.NURSE ---
Addendum entered by Vandana Salazar R.N. 05/13/18 23:30: 1900- ngt suctioning out some red and frothy output. Original Note: assumed care of pt. Pt has garcia at beginning of shift. pt complaining she had to pee and that the garcia hurt, or she felt it was preventing her from peeing. garcia inspected. pt repositioning, pt wanted to stand so this was completed, still no urine out of garcia and pt stated she felt like she had to pee still. Pt back in bed and garcia balloon deflated and cleaned, garcia inserted a little farther after cleaning of vianey area and tubing itself, balloon re-inflated, minimal urine out. bladder scan showed about 30 ml. pt wanted garcia out, so garcia removed and pt up to void, 100 out. pt sat on BSC for a few minutes. Pt uses call light. a&0x3. md called and orders put in, ok to reinsert garcia for urinary retention. Pt compliant and updated. will continue to monitor pt for safety.
[2018-05-14] VITALS (12 sets, daily range): BP systolic 104–145; BP diastolic 46–70; PULSE 70–78; RESP 12–20; TEMP 36.4–36.9; O2SAT 88–99
[2018-05-14] MEDS: KETOROLAC 30 MG/ML VIAL IV ×4 (00:03→19:00)
[2018-05-14] MEDS: DEXTROSE 5%-0.45% NS 1,000 ML 125 ML IV ×3 (00:20→16:06)
[2018-05-14] MEDS: ALBUTEROL/IPRATROPIUM 3 ML AMPUL INH ×2 (00:28→08:16)
[2018-05-14] MEDS: LORazepam 2 MG/ML SYRINGE 1 MG IV ×3 (00:57→16:42)
--- NOTE | 2018-05-14 04:05 | DI.RAD.S_ITS ---
PROCEDURE: XR CHEST 1V INDICATIONS: px w/ breathing/low UOP. R/o fluid overload TECHNIQUE: One view of the chest was acquired. COMPARISON: [facility], CR, XR ACUTE ABDOMEN SERIES, 05/11/2018, 17:27. FINDINGS: Surgical changes and devices: There is a new NG tube, the tip of which is projected over the expected location of the gastric fundus. Lungs and pleura: Lung volumes are low. Probable atelectasis is present in the midlung zone the right lung base. There is likely a small left pleural effusion. Mediastinum: Mediastinal contours appear normal. Heart size is normal. Bones and chest wall: No suspicious bony lesions. Overlying soft tissues appear unremarkable. IMPRESSION: Low lung volumes, atelectasis and small left effusion. Dictated by: Misa Montoya M.D. on 05/14/2018 at 8:55 Approved by: Misa Montoya M.D. on 05/14/2018 at 8:55
[2018-05-14] MEDS: METOCLOPRAMIDE 10 MG/2 ML INJ 5 MG IV ×3 (05:21→22:05)
[2018-05-14 05:33] LABS: Add Manual Diff / Slide Review NO; Basophils Percent Auto 0.9 % (0-2); Eosinophils Percent Auto 1.8 % (2-4); Hematocrit 30.8 % (36-46); Hemoglobin 10.4 g/dL (12.0-16.0); Lymphocytes Percent Auto 14.9 % (25-40); Mean Corpuscular HGB Conc 33.9 % (30-36); Mean Corpuscular Hemoglobin 30.5 PG (26-34); Mean Corpuscular Volume 90.2 fL (80-100); Monocytes Percent Auto 12.4 % (3-14); Neutrophils Absolute Auto 6000 /uL (3000-5900); Platelet Count 233 X10^3/uL (150-400); Red Blood Cell Count 3.42 X10^6/uL (4.0-5.2); Red Cell Distribution Width 13.7 % (11.6-14.8); White Blood Cell Count 8.6 X10^3/uL (4.5-11.0)
[2018-05-14 05:41] LABS: BUN Creatinine Ratio 21.4 (6-22); Blood Urea Nitrogen 15 mg/dL (7-17); Carbon Dioxide 34 mmol/L (22-32); Chloride 100 mmol/L (98-107); Estimated Glomerular Filt Rate > 60.0 mL/min (>60); Glucose 114 mg/dL (80-110); HEMOLYSIS < 15 (0-50); Potassium 3.1 mmol/L (3.4-5.1); Sodium 141 mmol/L (137-145)
[2018-05-14] MEDS: HYDROMORPHONE PCA 6 MG/30 ML PCA.VIAL IV ×3 (06:19→22:05)
--- NOTE | 2018-05-14 08:28 | CM.DPC ---
DCP Cont: Per Surgeon, pt tolerated bowel surgery and pain seems to be controlled and NGT in place and will encourage some mobilization to at least the bedside chair today. Per RN, pt's local family has been visiting and pt seems to become more tearful during their visits but states she is happy to see them. Plan: DCP to follow for likely pt d/c home with family prior to return to [place] pending pt's progress. DCP to meet bedside with pt later today depending on triage needs after pt mobilizes some. JAMES Blake
[2018-05-14] MEDS: ENOXAPARIN 40 MG/0.4 ML SYRINGE SUBCUT (09:21)
--- NOTE | 2018-05-14 13:33 | PN_ITS ---
DATE OF SERVICE: 05/14/2018 SUBJECTIVE: Patient status post exploratory laparotomy with lysis of adhesions and repair of recurrent ventral hernia. Currently dealing with extreme anxiety, very emotional. Has high NG tube output. Denies passing flatus. Mtz catheter was removed, and she has frequent voidings of 100 to 200 cc. Currently afebrile. PHYSICAL EXAM: Abdomen is distended. Abdominal binder and dressing in place with some mild amount of drainage to the dressing. No obvious bleeding or infection. IMPRESSION: Otherwise stable postoperatively. Still has high NG output consistent with lack of reinstated gastrointestinal (GI) function. PLAN: Continue NG tube for now. With regard to urinary output, I've asked the nurse to do a post void residual to be certain that her evacuation is complete and not adding to discomfort for the patient. She has been up in the chair today but walking/ambulating is recommended as well. GloriaStephena - RAN/alban/ab doc#: [id number]/job#: [id number] dd: 05/14/2018 13:05:00 dt: 05/14/2018 13:26:00 DICTATING /COPIES TO: Kiley Ferris MD COPIES MNE: AYAH
--- NOTE | 2018-05-14 14:08 | PC.NURSE ---
AM NOTE - awake, drowsy after earlier ativan, assisted up to bsc w/void, sat in chair this am, pain managed with contract modeler 0.1mg/hr contin and 0.2/10/6mg demand, pain 4-5 on scale 0/10, bt hypo, no flatus yet, ng producing dark brown fluid in tubing and cannister, some expir wheezes lower lobes, 2l 94%, later discussed output with , and after pt assisted to bsc w/void 175ml, pvr measured at 30ml, ret to bed, pt periodically tearful and anxious, reassurance provided, discussed ativan available, will wait until after sisters visit for next dose.
[2018-05-14] MEDS: ONDANSETRON 4 MG/2 ML INJ IV (16:08)
--- NOTE | 2018-05-14 19:46 | PC.NURSE ---
Shift note: Earlier this evening patient c/o nausea. NG with dk brown liquid gastric output with some solid pieces observed in tubing at that time. I flushed NG with h2o, flush met some resistance at first, then able to clear tubing & flush 50 ml warm h2o, NG re-set to LIS with tubing clear. IV Zofran given. After 20 minutes she denied further nausea but did c/o some pain from this tube moving around. Began to cry, tearful, family at bedside giving emotional support. Medicated with Lorazepam 0.5 mg at that time, has denied nausea & has been calm & mostly dozing since then. Able to rouse quickly to voice. Remains NPO. Denies abd pain. Abd round, distended, BT quiet, denies passing flatus. Aquacel with shadow drainage to distal end of drsg with outer drsg cdi. Abd binder in place. Trans[place] [facility] pt able to void with no reported difficulty, did c/o some dizziness with movement. Ox3 & VS remain stable. Alarm active r/t dx, NG and dizziness. Sister at bedside tonight.
[2018-05-15] VITALS (9 sets, daily range): BP systolic 123–145; BP diastolic 68–81; PULSE 62–75; RESP 15–22; TEMP 36.3–36.8; O2SAT 89–97
--- NOTE | 2018-05-15 | DI.RAD.S_ITS ---
PROCEDURE: XR CHEST FOR PICC 1V INDICATIONS: PICC LINE PLACEMENT TECHNIQUE: One view of the chest was acquired. COMPARISON: [facility], CR, XR CHEST 1V, 05/14/2018, 5:22. FINDINGS: Surgical changes and devices: A right-sided PICC line is seen, with the tip overlying the inferior aspect of the superior vena cava, near the cavoatrial junction. A gastric tube is seen, with the tip overlying the mid stomach. The sidehole is near the level of the diaphragm. Lungs and pleura: Low lung volumes are noted. This causes a crowded appearance to the lung markings and limits evaluation. Interstitial prominence is seen. Likely mild atelectasis is seen at the lung bases. Mediastinum: Mediastinal contours appear normal. Heart size is normal. Bones and chest wall: No suspicious bony lesions. Age-appropriate bony degenerative changes are seen. Overlying soft tissues appear unremarkable. IMPRESSION: The tip of the right-sided PICC line is seen near the cavoatrial junction. Stable gastric tube. Low lung volumes with interstitial prominence. The interstitial prominence is attributed to pulmonary edema. As clinically appropriate, a short-term followup chest series (with PA and lateral views) performed in deep inspiration is suggested for further evaluation. Dictated by: Nura Blanco M.D. on 05/15/2018 at 17:37 Approved by: Nura Blanco M.D. on 05/15/2018 at 17:38
[2018-05-15] MEDS: KETOROLAC 30 MG/ML VIAL IV ×3 (00:12→18:08)
[2018-05-15] MEDS: DEXTROSE 5%-0.45% NS 1,000 ML 125 ML IV ×3 (00:12→16:24)
[2018-05-15] MEDS: METOCLOPRAMIDE 10 MG/2 ML INJ 5 MG IV ×3 (05:42→22:05)
[2018-05-15] MEDS: HYDROMORPHONE PCA 6 MG/30 ML PCA.VIAL IV ×2 (06:04→22:05)
--- NOTE | 2018-05-15 06:34 | PC.NURSE ---
Pt had no complaints of pain throughout shift. Dilaudid ALKYLATION OPERATOR total amount used for shift was0.9mL NGT to low intermittent suction= 650mL dark brown 2L NC on, HOB elevated, continuous pulse ox on, satting at 97%. No gas, No BM, no bowel tones heard Refused SCD's. abdominal dressing with some drainage at distal end, otherwise intact. Abdominal binder on. IVF continued as ordered. Fingersticks take q6h. NPO
--- NOTE | 2018-05-15 07:54 | PC.NURSE ---
Addendum entered by Chika Garcia R.N. 05/15/18 14:29: 1000.Pt was able to get up and ambulate in l[place]ax with staff, covering about 100 ft of lomax. No flatus. Pt has c/o I cant breath well, my airway, this tube is going to let everything dump inside my lungs Clearly significant anxiety, reassured. Reminding Pt of monitoring and NPO status. Intermintent nausea, anxiety does appear to coincide with increased nausea. Sister at bedside, Ativan given, Pt visably relaxed at next check. [address] Wilson on K+ 3.1 down from 3.7 and general poor status today, no flatus poor BT and general hopeless Orders rec'd Will get PICC as Pt may need TPN nutrition. Original Note: Am shift Note Pt is A/o x3, expresses some frustration with slow post op progression. Encouraged ambulation with staff to facillitate bowel mobility. Pt agreeable, will attempt after 0800 with staff assist. BT quite hypoactive. No nausea NG to LIS Call light in reach.
[2018-05-15] MEDS: LORazepam 2 MG/ML SYRINGE 1 MG IV ×2 (12:33→22:24)
[2018-05-15] MEDS: ENOXAPARIN 40 MG/0.4 ML SYRINGE SUBCUT (13:35)
[2018-05-15] MEDS: POTASSIUM CHLORIDE 60 MEQ in SODIUM CHLORIDE 0.9% 500 ML 88.333 ML IV (16:15)
--- NOTE | 2018-05-15 18:18 | PC.NURSE ---
Addendum entered by Ludmila Bowie R.N. 05/15/18 23:01: Kyra reports passing gas for 1st time tonight. Said we almost celebrated. Denies nausea, still c/o feeling of reflux, new order for Protonix administered. Pt c/o feeling anxious tonight, IV Ativan 1 mg given per request. Has only used 0.6 mg ORACLE SOA CONSULTANT last 8 hours, reminded her if she has pain to push ORACLE SOA CONSULTANT button. NG patent with continued dark brown output, some more solid pieces observed in tubing. PIV to LFA is not flushing, pt reporting pain at site. IV removed, pressure drsg applied with small pce paper tape. Small area of pink rash observed just lateral to where IV insertion was, irritated by the tape which was removed. PICC line intact, K+ rider still infusing tonight, almost complete. She remains Ox3, calling nurse appropriately. Words of encouragement & support reinforced tonight as she is often anxious about situation. Original Note: PICC placement note: During shift report Chika payne RN notified me that she had entered order for PICC placement. palliative nurse Norma told me to notify in-house DI PICC nurse about the order because recently orders had not been getting to DI. I called secretary office clerk to call DI as I was working in room with Kyra at that time. DI nurse said she could not see the order for PICC placement in computer, dry charge process attendant attempted to put in PICC placement order. palliative nurse notified DI nurse via phone that we need them to come up to place this PICC line. DI nurse came up to acute care, asked me to enter order in [employer]. I asked her to help me enter order as previous attempts were made by nursing to enter this order. We stood at computer together & she helped me enter the correct order. During order clerk GILL nurse asked me why this patient needs PICC line, I stated that she has been NPO for several days & will need TPN. She then went in room to place PICC. Chest xray complete to confirm placement. GILL nurse told me that PICC had been placed, I asked if this was a double or single lumen & she said it was a single lumen. I clarified with DI nurse that patient will need TPN (as previously discussed.) GILL nurse said I had already opened a single lumen kit. I notified dry charge process attendant of this incident.
--- NOTE | 2018-05-15 20:24 | PM.PN.1 ---
Subjective Date Patient Seen: 05/15/18 Time Patient Seen: 20:24 Interval history: Patient nodes incisional pain but controlled with the VEHICLE SALES PROFESSIONAL. Denies any flatus or bowel function. No nausea or vomiting but NG tube remains in place draining dark bilious fluid. Date shift output was approximately 500 cc. Patient remains subjectively distended. Also complaining of some retrosternal spasmodic pain consistent with irritation from the nasogastric tube. Denies chest pain or shortness of breath otherwise. Ambulating with assistance in the hallways today. Exam Vital Signs (past 8 hours): - 05/15/18 15:25 05/15/18 19:32 05/15/18 19:34 Temperature 97.8 F 97.8 F Pulse Rate 62 68 Respiratory Rate 18 18 Blood Pressure 141/75 H 128/81 Pulse Oximetry 97 97 97 Oxygen Delivery Method High Flow Nasal Cannula Oxygen Flow Rate 2 Narrative Exam Narrative: Well-nourished well-developed female lying comfortably in bed in no acute distress. Family is at the bedside. She is somewhat subdued today as she is beginning to wonder if she will ever recover from the operation. Otherwise alert oriented x3. Sclera nonicteric No wheezes Regular rate and rhythm Abdomen is soft and distended. She remains tympanitic. Appropriately tender. No guarding or rebound. Dressing is clean and intact. Extremities show no clubbing or cyanosis Objective Labs Result Diagrams: 05/14/18 05:18 05/14/18 05:18 Labs: No new laboratory or radiographic studies today. Assessment & Plan Plan: Assessment/Plan Narrative: 63-year-old female postoperative day 3 from laparotomy with lysis of adhesions and primary hernia repair for small-bowel obstruction who continues to have anticipated postoperative ileus. Nasogastric tube output remains significant. Will place on proton pump inhibitor and discontinue Toradol after tomorrow's dose. I had a lengthy discussion with her and her family regarding postoperative ileus and slow return of bowel function. She understands that the nasogastric tube needs to remain in place until ileus begins to resolve. In the interim I encouraged her to continue aggressive pulmonary toilet and ambulation. Continue VEHICLE SALES PROFESSIONAL for now. Decrease IV fluid rate. PICC line is placed today in anticipation of TPN starting tomorrow. Repeat laboratory studies tomorrow for electrolytes. Potassium was supplemented today. All questions were otherwise answered to her satisfaction, and she voiced understanding. Orders were written. Quality VTE Deep Vein Thrombosis/Pulmonary Embolism Present on Admission: No
--- NOTE | 2018-05-15 20:28 | P.PN_ITS ---
Subjective Date Patient Seen: 05/15/18 Time Patient Seen: 20:24 Interval history: Patient nodes incisional pain but controlled with the BALE STACKER. Denies any flatus or bowel function. No nausea or vomiting but NG tube remains in place draining dark bilious fluid. Date shift output was approximately 500 cc. Patient remains subjectively distended. Also complaining of some retrosternal spasmodic pain consistent with irritation from the nasogastric tube. Denies chest pain or shortness of breath otherwise. Ambulating with assistance in the hallways today. Exam Vital Signs (past 8 hours): - 05/15/18 15:25 05/15/18 19:32 05/15/18 19:34 Temperature 97.8 F 97.8 F Pulse Rate 62 68 Respiratory Rate 18 18 Blood Pressure 141/75 H 128/81 Pulse Oximetry 97 97 97 Oxygen Delivery Method High Flow Nasal Cannula Oxygen Flow Rate 2 Narrative Exam Narrative: Well-nourished well-developed female lying comfortably in bed in no acute distress. Family is at the bedside. She is somewhat subdued today as she is beginning to wonder if she will ever recover from the operation. Otherwise alert oriented x3. Sclera nonicteric No wheezes Regular rate and rhythm Abdomen is soft and distended. She remains tympanitic. Appropriately tender. No guarding or rebound. Dressing is clean and intact. Extremities show no clubbing or cyanosis Objective Labs Result Diagrams: 05/14/18 05:18 05/14/18 05:18 Labs: No new laboratory or radiographic studies today. Assessment & Plan Plan: Assessment/Plan Narrative: 63-year-old female postoperative day 3 from laparotomy with lysis of adhesions and primary hernia repair for small-bowel obstruction who continues to have anticipated postoperative ileus. Nasogastric tube output remains significant. Will place on proton pump inhibitor and discontinue Toradol after tomorrow's dose. I had a lengthy discussion with her and her family regarding postoperative ileus and slow return of bowel function. She understands that the nasogastric tube needs to remain in place until ileus begins to resolve. In the interim I encouraged her to continue aggressive pulmonary toilet and ambulation. Continue BALE STACKER for now. Decrease IV fluid rate. PICC line is placed today in anticipation of TPN starting tomorrow. Repeat laboratory studies tomorrow for electrolytes. Potassium was supplemented today. All questions were otherwise answered to her satisfaction, and she voiced understanding. Orders were written. Quality VTE Deep Vein Thrombosis/Pulmonary Embolism Present on Admission: No
[2018-05-15] MEDS: PANTOPRAZOLE 40 MG VIAL IV (22:05)
[2018-05-16] VITALS (8 sets, daily range): BP systolic 137–156; BP diastolic 67–79; PULSE 66–68; RESP 12–24; TEMP 36.8–36.9; O2SAT 92–98
[2018-05-16] MEDS: KETOROLAC 30 MG/ML VIAL IV ×3 (00:04→13:07)
[2018-05-16] MEDS: METOCLOPRAMIDE 10 MG/2 ML INJ 5 MG IV ×3 (05:41→22:18)
--- NOTE | 2018-05-16 05:50 | PC.NURSE ---
Addendum entered by Saniya Hummel R.N. 05/16/18 06:27: Critical Value for CO2=40. Dr Wilson notified, no interventions at this time. Spoke to Dr. Wilson regarding dressing as well; he will remove it today and assess. Original Note: Pt used 0mg of her dilaudid RN LVN pump. No continuous dose either. Abdominal dressing looks a bit more saturated than yesterday at the distal end. Unsure whether or not to change dressing or if the provider wants to be the first one to remove the initial dressing. No specific instructions in computer as to how to dress it. Will report this to next shift. Saturating well on 1.5L NC. Some expiratory wheezes noted this morning. Frequently up to commode. RUE PICC in place, clean dry and intact. Labs taken. NGT to low intermittent suction with 400mL of dark brown drainage. Patient reports having passed gas yesterday evening as well as last night. No BM yet.
[2018-05-16 06:00] LABS: BUN Creatinine Ratio 6.7 (6-22); Blood Urea Nitrogen 4 mg/dL (7-17); Calcium 8.2 mg/dL (8.4-10.2); Chloride 100 mmol/L (98-107); Estimated Glomerular Filt Rate > 60.0 mL/min (>60); Glucose 114 mg/dL (80-110); HEMOLYSIS < 15 (0-50); Phosphorous 3.1 mg/dL (2.8-4.1); Potassium 3.1 mmol/L (3.4-5.1); Sodium 145 mmol/L (137-145)
[2018-05-16 06:19] LABS: Carbon Dioxide 40 mmol/L (22-32)
[2018-05-16] MEDS: PANTOPRAZOLE 40 MG VIAL IV (09:40)
[2018-05-16] MEDS: ENOXAPARIN 40 MG/0.4 ML SYRINGE SUBCUT (09:40)
[2018-05-16] MEDS: DEXTROSE 5%-0.45% NS 1,000 ML 100 ML IV (09:43)
--- NOTE | 2018-05-16 10:13 | PC.NURSE ---
Addendum entered by Sarah Linares R.N. 05/16/18 13:47: this RN pt check sats 87%ra while sleeping, pt awakens easily to voice, placed 2l via cannula while sleeping Original Note: Addendum entered by Sarah Linares R.N. 05/16/18 13:39: pt appears to be comfortable at this time, sitting up in chair sleeping, respirations are equal and unlabored 91-93%RA. call light within reach and chair alarm on. Original Note: Addendum entered by Sarah Linares R.N. 05/16/18 13:10: pt c/o feeling anxious feels like her NG tube is going to come out again, tube is secured with tape to her nose and has fabiano that has not moved. Pt requested ativan was administered. Dentures and partials cleaned and placed back into her mouth. denies any nausea, did c/o sharp pain to left lower abdomen, abdominal binder was digging in, pt sat up in chair at bedside and adjusted binder and reports helpful, bowel tones continues to be hypoactive and denies passing flatus at this time. family at bedside. call light within reach and chair alarm on. Original Note: day shift 0800- pt assisted to bedside commode and was sitting on egde of bed and started coughing and NG came out. called notifed dr Wilson states needs to be reinserted. Pt agreeable heel turnerANGY Phillips placed tube with immediate green gastric secretions in tubing, placed back on low intermittent suction. Pt was assisted with bed bath by BACKEND JAVA DEVELOPER. This rn then assisted pt to sit in chair at bedside. Denies any nausea, SOB or chest pain. 0940- assisted pt from chair to bedside commode, denies any difficulty with urination. abdomen continues to be firm and distended, very minimal flatus. family at bedside. call light within reach.
[2018-05-16] MEDS: LORazepam 2 MG/ML SYRINGE 1 MG IV ×2 (12:59→22:25)
[2018-05-16] MEDS: HYDROMORPHONE PCA 6 MG/30 ML PCA.VIAL IV ×2 (14:18→22:14)
--- NOTE | 2018-05-16 17:55 | P.PN_ITS ---
Subjective Date Patient Seen: 05/16/18 Time Patient Seen: 17:51 Interval history: Patient in inverted we removed her NG tube earlier today when transferring out of bed. NG was replaced per the charge nurse without issue. Now draining some bilious fluid but not as voluminous as a last 24 hr. No nausea. No vomiting. Pain controlled with AUTO TRAVEL COUNSELOR. Past a small amount of flatus last evening but none since. No bowel movement since surgery. Feels significantly subjectively distended but no chest pain or shortness of breath. Continues to ambulate aggressively in the hallways with assistance. Will like nothing more than a cup of coffee currently. Exam Vital Signs (past 8 hours): - 05/16/18 12:30 05/16/18 15:34 Temperature 98.2 F 98.3 F Pulse Rate 66 Respiratory Rate 24 18 Blood Pressure 144/69 H 141/76 H Pulse Oximetry 92 95 Oxygen Delivery Method Room Air Oxygen Flow Rate 1.5 Narrative Exam Narrative: Patient resting comfortably in bedside chair in no acute distress. Family is at the bedside. Patient seen and examined with the assistance of the attending nurse this evening. Sclera nonicteric Nasogastric tube is in place No wheezes Regular rate and rhythm Abdomen remains significantly distended and tympanitic. She is otherwise soft and appropriately tender however. No guarding or rebound. Dressing is removed and the wound is clean, dry, and intact. No erythema or ecchymoses. Extremities show no clubbing or cyanosis Objective Labs Result Diagrams: 05/14/18 05:18 05/16/18 05:30 Labs: Laboratory Results - last 24 hr 05/16/18 05:30 Sodium 145 Potassium 3.1 L Chloride 100 Carbon Dioxide 40 H* BUN 4 L Creatinine 0.60 Estimated GFR > 60.0 BUN/Creatinine Ratio 6.7 Glucose 114 H Calcium 8.2 L Phosphorus 3.1 Magnesium 2.0 Remains hypokalemic but otherwise no significant changes Assessment & Plan Plan: Assessment/Plan Narrative: 63-year-old female postoperative day 4 from exploratory laparotomy with lysis of adhesions and primary repair of incisional hernia causing small-bowel obstruction who remains with ongoing ileus. However, the ileus is not unanticipated given the nature of her disease and required operation. She overall is doing well. Continue aggressive pulmonary toilet, breathing treatments, in ambulation. Wean oxygen as tolerated. PICC line has been placed without issue. We will begin TPN this evening with supplemental potassium. Lipids have also been ordered. Otherwise continue nasogastric tube decompression until bowel function improves. She has no evidence of any infectious complications or other issues at this time. I discussed all the above with the patient and her family in detail. Questions were answered to her satisfaction, and she voiced understanding. Orders were written. Quality VTE Deep Vein Thrombosis/Pulmonary Embolism Present on Admission: No
[2018-05-16] MEDS: SODIUM CHLORIDE 0.9% 1,000 ML 65 ML IV (18:30)
--- NOTE | 2018-05-16 18:34 | PC.NURSE ---
PM shift Dr. Wilson saw patient this shift, removed Aquacell and placed a Telfa over midline incision; abdominal binder covering. TPN and lipids to start. Switched fluids from D5 1/2 NS to NS 65ml/hr. PICC is single lumen so PIV started right wrist. NG tube suction intermittently, green drainage. NC O2 at 1L. Patient is pleasant, alert, and oriented, but has some forgetful moments. Moderate anxiety being managed with additional education regarding interventions.
[2018-05-16] MEDS: AA 5 %/CALCIUM/LYTES/DEXT 20 % 1,000 ML with MULTIVITAMIN 10 ML, TRACE ELEMENTS 1 ML, P... 43.583 ML IV (19:17)
[2018-05-16] MEDS: FAT EMULSIONS 50 GM/250 ML EMULSION IV (19:17)
--- NOTE | 2018-05-17 | DI.CT.S_ITS ---
PROCEDURE: CT KIDNEY URETER BLADDER (KUB) INDICATIONS: Ileus, Very high NGT output TECHNIQUE: Noncontrast 5 mm thick sections acquired from the diaphragms to the symphysis. 5 mm thick coronal and sagittal reformats were then performed. For radiation dose reduction, the following was used: automated exposure control, adjustment of mA and/or kV according to patient size. COMPARISON: [facility], CT, CT ABDOMEN PELVIS W CON, 05/08/2018, 0:44. FINDINGS: Image quality: Excellent. Lung bases: Focal consolidation is present at the right lung base which is new when compared with the study dated 05/08/18. Mild atelectasis is present at the left lung base. There are small low-density bilateral pleural effusions. Urinary system: Both kidneys are normal in size. No kidney stones. No hydronephrosis or perinephric fat stranding. Both ureters appear non-dilated throughout their expected courses. The bladder is decompressed. There is diffuse perivesicular fat stranding and mild bladder wall thickening. This is increased in extent when compared with the study dated 05/08/18. No calcified bladder stones. The uterus is grossly unremarkable. The ovaries are unremarkable. Other solid organs: Liver is normal in size. Radiodense sludge is layered in the gallbladder fundus. Pancreas is normal in contours. Spleen is normal in size. No adrenal nodules. Peritoneum and bowel: There is a new midline incision and surgical reduction of the multiple fat-containing midline hernia is when compared with the prior study dated 05/08/18. The stomach is decompressed and an NG tube is present. The jejunum is markedly dilated and filled with gas and fluid. There is likely a transition point within the left lower quadrant. The downstream small bowel is decompressed. There is a moderate amount of mesenteric fat stranding. The appendix is not visualized; however there is no discrete right lower quadrant fluid or fat stranding to suggest acute appendicitis. The colon is predominantly decompressed. There are scattered sigmoid diverticula. No evidence for diverticulitis. There is a small amount of low-density fluid in the pelvis. Nodes and vessels: No retroperitoneal or mesenteric adenopathy by size criteria. Aorta and inferior vena cava are normal in caliber. There are scattered atheromatous calcifications throughout the aorta and iliac arteries bilaterally. Abdominal wall: No ventral hernias. Pelvis: No free pelvic fluid. No inguinal hernias or adenopathy. Bones: No suspicious bony lesions. No vertebral body compression fractures. IMPRESSION: 1. Marked dilatation of the proximal small bowel and decompressed distal small bowel and colon suggesting a transition point in the left lower quadrant. These findings are suspicious for small bowel obstruction. Ileus is considered less likely given the decompressed small bowel and colon. 2. New consolidation of the right lung base suggesting atelectasis, aspiration, or infection. These findings were discussed with Eloina Brown RN at 11:18 AM on 05/17/18. 3. Mild bladder wall thickening and perivesicular fat stranding. Acute cystitis cannot be excluded and urinalysis may be helpful. Dictated by: Misa Montoya M.D. on 05/17/2018 at 10:47 Approved by: Misa Montoya M.D. on 05/17/2018 at 11:20
[2018-05-17 00:20] VITALS: BP 154/72; PULSE 71; RESP 18; TEMP 36.2; O2SAT 100
--- NOTE | 2018-05-17 00:47 | PC.NURSE ---
SPO2 in 1 liter 02/NC 100%. Turned oxygen off & rechecked SPO2 in RA 92 %, while asleep. Will monitor.
[2018-05-17] MEDS: METOCLOPRAMIDE 10 MG/2 ML INJ 5 MG IV (05:57)
[2018-05-17] MEDS: HYDROMORPHONE PCA 6 MG/30 ML PCA.VIAL IV ×3 (05:58→21:44)
[2018-05-17 06:08] VITALS: BP 156/75; PULSE 72; RESP 18; TEMP 36.1; O2SAT 97
[2018-05-17] MEDS: PANTOPRAZOLE 40 MG VIAL IV (08:52)
[2018-05-17] MEDS: ENOXAPARIN 40 MG/0.4 ML SYRINGE SUBCUT (08:52)
[2018-05-17 09:20] VITALS: BP 150/70; PULSE 64; RESP 18; TEMP 36.4; O2SAT 97
--- NOTE | 2018-05-17 10:20 | PM.PN.1 ---
Subjective Date Patient Seen: 05/17/18 Time Patient Seen: 10:21 Interval history: Kyra is sitting up at the bedside. She is a bit tearful today. She reports that she is scared and just does not feel like she is getting better. She is also frustrated because she reports having to urinate at least every hour and says it makes her very tired. She says her abdomen does not hurt but it just feels sore. She has not passed any gas but she is not having any nausea. She definitely feels some movement in her abdomen and reports that she wants to get up and walk and see if it helps. She is frustrated that her NG tube was replaced last night. She says that she will not ever do that again. Exam Vital Signs (past 8 hours): - 05/17/18 06:08 Temperature 96.9 F L Pulse Rate 72 Respiratory Rate 18 Blood Pressure 156/75 H Pulse Oximetry 97 Oxygen Delivery Method Nasal Cannula Oxygen Flow Rate 1 Narrative Exam Narrative: Pleasant somewhat tearful lady in mild emotional distress Lungs: Essentially clear bilaterally Heart: Regular rate and rhythm Abdomen: Soft, appropriately tender to palpation, scattered bowel sounds. Wound is not examined today due to patient's positioning. Extremities: Trace edema bilaterally Objective Labs Result Diagrams: 05/14/18 05:18 05/16/18 05:30 Assessment & Plan Plan: Assessment/Plan Narrative: 1. Postop day 5 after exploratory laparotomy for significant bowel obstruction. I am hopeful that she is turning the corner. She has had an impressive diuresis over the last 24 hr of over 5 L. 2. NG output is high and the tube appears to be quite advanced. We will check a KUB this morning and see if we need to pull it back. The output would be abnormally elevated if it were in the duodenum. 3. Check BMP this morning as her potassium was low yesterday and her bicarbonate was elevated. She is on TPN so this may have been corrected but we need to check. 4. Increase Reglan to help with gastric motility 5. Continue to ambulate in the halls. Quality VTE Deep Vein Thrombosis/Pulmonary Embolism Present on Admission: No
[2018-05-17] MEDS: SODIUM CHLORIDE 0.9% 1,000 ML 65 ML IV (10:40)
[2018-05-17 11:01] LABS: Blood Urea Nitrogen 3 mg/dL (7-17); Calcium 8.4 mg/dL (8.4-10.2); Carbon Dioxide 32 mmol/L (22-32); Chloride 105 mmol/L (98-107); Estimated Glomerular Filt Rate > 60.0 mL/min (>60); Glucose 138 mg/dL (80-110); HEMOLYSIS < 15 (0-50); Potassium 3.5 mmol/L (3.4-5.1); Sodium 144 mmol/L (137-145)
--- NOTE | 2018-05-17 11:16 | PM.OP.1 ---
Operative Date/Time/Diagnoses Date of procedure: 05/17/18 Time of procedure: 11:16 Pre-op diagnosis: Umbilical hernia Post-op diagnosis: other (1. Incarcerated umbilical hernia; 2. Incarcerated ventral hernia 3 cm superior to the umbilicus) Procedure & Clinicians Procedure: Repair of umbilical and ventral hernias with C cur mesh Same procedure as scheduled: No (Additional ventral hernia repair) Surgeon: Juanita Henderson Click Yes if Unassisted: Yes Anesthesia Type: General (Goetter) and Local Operative Notes Findings: 1. 1.5 cm umbilical hernia containing incarcerated preperitoneal fat 2. 1.5 cm ventral hernia, 3 cm superior to the umbilical hernia, containing incarcerated preperitoneal fat Closure Type: primary Specimen(s): none sent Implants & Drains: 8 cm C cur mesh implant Estimated Blood Loss (mL): 10 Blood products transfused: none Procedure in detail: After obtaining informed consent, the patient brought to the operating room and placed in the supine position on the operating table. Following successful induction of general endotracheal anesthesia, appropriate padding of all bony prominences, and placed on appropriate monitors, the abdomen is prepped and draped in the standard surgical fashion. A time-out was held per SCOAP protocol. Following infiltration with local anesthetic create a field block, an incision was created directly through the umbilicus and carried down through the skin and subcutaneous tissue. The hernia sac was immediately identified. It was carefully dissected free from the overlying dermis of the umbilicus and allowed to retract back into the abdominal cavity. In palpating the abdominal fascia, a 2nd fatty mass was appreciated 3 cm superior to the umbilicus. This was investigated further and found to be preperitoneal fat incarcerated in a 2nd 1.5 cm ventral hernia. This fat was liberated revealing the edges of the fascia. The abdomen was irrigated with warm saline solution and checked for hemostasis. The omentum was placed over the bowel contents in the peritoneal cavity. Multiple holes in the peritoneum were present and I was not able to close all of them. A 8 cm portion of C cur mesh was placed in the umbilical defect and superiorly in the preperitoneal space. Inferiorly, it was difficult to cover the entire mesh with preperitoneal tissue but all of the edges were sufficiently covered. Once the mesh was in place, the 2nd ventral hernia was checked to be sure that the mesh covered this defect. It was then closed with a Vicryl suture to reapproximate the fascia in this region. The tails of the C cur mesh were then secured to the abdominal fascia with interrupted sutures. The wound was checked for hemostasis and irrigated with Ancef containing solution. The belly button was reconstructed by sewing the dermis of the umbilical skin to the underlying fascia. The skin was then closed in layers with Vicryl and Monocryl suture. All sponge, needle, and instrument counts were correct at the conclusion of the case. The patient was allowed awaken from anesthesia without difficulty and taken to the post anesthesia care unit in good condition. Complications: none Condition: stable Disposition: PACU Plan for aftercare: 1. Discharge to home 2. Plan to follow up with me in 2 weeks
[2018-05-17] MEDS: METOCLOPRAMIDE 10 MG/2 ML INJ IV ×2 (11:23→18:30)
[2018-05-17] MEDS: BISACODYL 10 MG SUPP PR (11:23)
[2018-05-17 11:50] VITALS: BP 140/64; PULSE 68; RESP 18; TEMP 36.6; O2SAT 97
--- NOTE | 2018-05-17 12:31 | PC.NURSE ---
Day shift 0720 pt is A&O able to make needs known. This RN assisted pt to BSC states she has been up all night urinating. voided 200cc clear yellow urine. Pt denies pain at this time states it just feels sore to her abdomen, Bowel tones continue to be hypoactive and denies passing flatus. Abdomen is firm and distended but does appear to be less then yesterdays assessment. 1030- Dr loaiza into see patient, ok to hold off on suppository till imaging done. Clamped NG tube and pt went down for CT scan via w/c. 1100- ANGY alcantara connected pt back from CT to low intermittent suction. 1115- This rn educated pt on suppository, pt is anxious states she does not want to have an accident, this RN got everything in room arranged for when pt had to go. Pt sitting up in chair at bedside, call light within reach and chair alarm on. Denies any nausea or GI upset. 1200- pt was assisted to bedside commode with small BM brown in color with mucus. pt assisted back to chair at bedside, call light within reach and chair alarm on.
--- NOTE | 2018-05-17 15:22 | CM.DPC ---
DCP: continued: Case received, EMR reviewed. Met with pt and introduced self and role. Pt's brother in law is at bedside, pt notes it is fine to talk in front of him. Pt admitted on 05/08 to care of General Surgical team. Dr. Henderson took her to surgery 05/12 for a laparotomy/VICTORIA and repair of a large incisional hernia. Pt is here from [place] visiting her sister Moon: cell: [phone] who lives in [place]. Her has been with her. Has now returned to [place]. Pt confirms she plans to stay in [place] with Moon as long as she needs to and until ok'd by surgeon before she flies back home. She is eager to return home but says she 'wants to be smart about it and make sure she is healed enough to go. She is mobilizing as much as she can in the halls with nsg support but is weak. She will have 13 stairs to navigate at Moon's home. Surgical team is encouraging her to mobilize as much as possible: will obtain PT order to help with this and assist with specifics such as stairs and DME need. NG to suction is in and draining. Pt is on TPN. Had one small BM today so says she is hopeful with this sign. P: DCP team to continue to check in with pt and assist with d/c issues and options. Will also be looking to direction from the surgical team on the d/c planning needs that they anticipate for pt.
[2018-05-17 15:24] VITALS: BP 147/78; PULSE 64; RESP 18; TEMP 36.3; O2SAT 94
[2018-05-17] MEDS: FAT EMULSIONS 50 GM/250 ML EMULSION IV (18:29)
[2018-05-17] MEDS: AA 5 %/CALCIUM/LYTES/DEXT 20 % 1,000 ML with MULTIVITAMIN 10 ML, TRACE ELEMENTS 1 ML, P... 43.583 ML IV (18:30)
[2018-05-17 19:21] VITALS: BP 160/73; PULSE 67; RESP 19; TEMP 36.7; O2SAT 94
[2018-05-17] MEDS: LORazepam 2 MG/ML SYRINGE 1 MG IV (20:01)
[2018-05-18] VITALS (7 sets, daily range): BP systolic 147–169; BP diastolic 65–86; PULSE 55–70; RESP 16–20; TEMP 36–37.1; O2SAT 93–96
[2018-05-18] MEDS: METOCLOPRAMIDE 10 MG/2 ML INJ IV ×2 (00:26→06:13)
[2018-05-18] MEDS: SODIUM CHLORIDE 0.9% 1,000 ML 65 ML IV ×2 (03:00→17:28)
--- NOTE | 2018-05-18 04:03 | PC.NURSE ---
Pt. C/O sl. dizziness when she got up OOB @ 0340. Resolved after she went back to bed, denies any nausea & no C/O increase pain to her abdomen. C/O urinary urgency & frequency, voiding 150-200 clear yellow urine. Denies any dysuria , will cont. POC & monitor.
--- NOTE | 2018-05-18 05:43 | PC.NURSE ---
Ambulated in the hallway to [facility] nurse's station. Requested to stay in the recliner, call light w/in reached. Instructed to call for assistance to the BSC. Will monitor.
[2018-05-18] MEDS: ENOXAPARIN 40 MG/0.4 ML SYRINGE SUBCUT (09:19)
[2018-05-18] MEDS: PANTOPRAZOLE 40 MG VIAL IV (09:19)
[2018-05-18 12:20] LABS: Add Manual Diff / Slide Review NO; Basophils Percent Auto 1.1 % (0-2); Eosinophils Percent Auto 1.1 % (2-4); Hematocrit 32.6 % (36-46); Hemoglobin 10.9 g/dL (12.0-16.0); Lymphocytes Percent Auto 13.1 % (25-40); Mean Corpuscular HGB Conc 33.6 % (30-36); Mean Corpuscular Hemoglobin 30.1 PG (26-34); Mean Corpuscular Volume 89.8 fL (80-100); Monocytes Percent Auto 8.7 % (3-14); Neutrophils Absolute Auto 8200 /uL (3000-5900); Platelet Count 350 X10^3/uL (150-400); Red Blood Cell Count 3.63 X10^6/uL (4.0-5.2); Red Cell Distribution Width 13.6 % (11.6-14.8); White Blood Cell Count 10.8 X10^3/uL (4.5-11.0)
[2018-05-18 12:40] LABS: Alanine Aminotransferase 38 IU/L (9-52); Albumin 3.3 g/dL (3.5-5.0); Albumin Globulin Ratio 1.2 (1.0-2.8); Alkaline Phosphatase 80 U/L (38-126); Aspartate Aminotransferase 30 IU/L (14-36); Bilirubin Total 0.3 mg/dL (0.2-1.3); Blood Urea Nitrogen 7 mg/dL (7-17); Calcium 8.6 mg/dL (8.4-10.2); Carbon Dioxide 31 mmol/L (22-32); Chloride 105 mmol/L (98-107); Estimated Glomerular Filt Rate > 60.0 mL/min (>60); Globulin 2.8 g/dL (1.7-4.1); Glucose 125 mg/dL (80-110); HEMOLYSIS < 15 (0-50); Potassium 3.7 mmol/L (3.4-5.1); Sodium 146 mmol/L (137-145); Total Protein 6.1 g/dL (6.3-8.2)
[2018-05-18] MEDS: LORazepam 2 MG/ML SYRINGE 1 MG IV (12:43)
--- NOTE | 2018-05-18 13:16 | P.PN_ITS ---
Subjective Date Patient Seen: 05/18/18 Time Patient Seen: 13:11 Interval history: Kyra is having a little difficulty today. She walked twice in the halls and did well. The 3rd time she walks she did not feel as well. She had a large amount of NG tube output but is also taking ice chips and quite a bit of water. We have not done a good job quantitate and how much she is taking orally so I really do not know how to measure her output. At any rate, the NG tube output is higher than I would like it to be. She continues to diurese. She reports that she has up to urinate so many times at night that she can't sleep and can't rest. She is tearful when she talks about how difficult it is for her to sleep. She says her pain is well controlled. She reports feeling a lot of moving around in her belly today. Exam Vital Signs (past 8 hours): - 05/18/18 05:30 05/18/18 08:45 Temperature 97.3 F L 96.8 F L Pulse Rate 60 68 Respiratory Rate 16 16 Blood Pressure 147/75 H 149/69 H Pulse Oximetry 94 95 Oxygen Delivery Method Room Air Oxygen Flow Rate 0 Narrative Exam Narrative: Lungs are clear bilaterally. No wheezing. Heart: Regular rate and rhythm Abdomen: Soft, active bowel sounds. Much more active than I have heard at previous exams. Incision is clean and dry and well approximated. There is no erythema and no bruising. Extremities: Trace edema bilateral lower extremity Objective Labs Result Diagrams: 05/18/18 12:05 05/18/18 12:05 Labs: Laboratory Results - last 24 hr 05/18/18 05/18/18 12:05 12:05 WBC 10.8 RBC 3.63 L Hgb 10.9 L Hct 32.6 L MCV 89.8 MCH 30.1 MCHC 33.6 RDW 13.6 Plt Count 350 Neut % (Auto) 76.0 H Lymph % (Auto) 13.1 L [place] % (Auto) 8.7 Eos % (Auto) 1.1 L Baso % (Auto) 1.1 Neut # (Auto) 8200 H Sodium 146 H Potassium 3.7 Chloride 105 Carbon Dioxide 31 BUN 7 Creatinine 0.50 L Estimated GFR > 60.0 BUN/Creatinine Ratio 14.0 Glucose 125 H Calcium 8.6 Total Bilirubin 0.3 AST 30 ALT 38 Alkaline Phosphatase 80 Total Protein 6.1 L Albumin 3.3 L Globulin 2.8 Albumin/Globulin Ratio 1.2 Assessment & Plan Plan: Assessment/Plan Narrative: 1. Prolonged postoperative ileus. There are some positive signs although the picture somewhat confusing. She is diuresing added impressive rate but also has high NG tube output. I have asked the nurse to carefully quantitate her ice and water intake through the day so that we can better assess what is going on from that perspective. 2. Diuresis is keeping the patient awake at night and interfering with her ability to rest. We will place a Mtz catheter this evening at bedtime so that she can get a good night's sleep. When the output drops off, we will remove it again. 3. I am going to stop the Reglan as it does not seem to be helping us and might be making the situation worse. It does not seem to be causing any pain but he can certainly contribute to anxiety and other mental health concerns. 4. I will start a scheduled low dose of Ativan. This should help with anxiety. She will continue to have the larger dose for breakthrough indications. Quality VTE Deep Vein Thrombosis/Pulmonary Embolism Present on Admission: No
[2018-05-18] MEDS: LORazepam 2 MG/ML SYRINGE 0.5 MG IV ×2 (17:20→23:57)
[2018-05-18] MEDS: AA 5 %/CALCIUM/LYTES/DEXT 20 % 1,000 ML with MULTIVITAMIN 10 ML, TRACE ELEMENTS 1 ML, P... 43.583 ML IV (17:20)
[2018-05-18] MEDS: HYDROMORPHONE PCA 6 MG/30 ML PCA.VIAL IV (22:28)
--- NOTE | 2018-05-18 23:29 | PC.NURSE ---
Mckenzie shift note: Patient awake and alert, partial hair wash and body wash today. Abdomen soft, with active BS. 475 ml green drainage amount shift total, NGT output. Total intake 60 ml. 0.6 MG Dilaudid MANAGER GIFT. FC placed, clear yellow urine. No nausea. Ambulated in room with 1PA, steady gait no dizziness. Abdominal binder in place.
[2018-05-19] VITALS (7 sets, daily range): BP systolic 137–157; BP diastolic 59–96; PULSE 53–66; RESP 14–20; TEMP 36.1–37.3; O2SAT 83–96
[2018-05-19] MEDS: LORazepam 2 MG/ML SYRINGE 0.5 MG IV (05:59)
--- NOTE | 2018-05-19 08:09 | P.PN_ITS ---
Subjective Date Patient Seen: 05/19/18 Time Patient Seen: 08:04 Interval history: Denies nausea. No significant pain. In fact, her SUPERVISOR BRAKE REPAIR use is minimal. Denies chest pain or shortness of breath. No wheezing. Slept well last night with Mtz catheter in place as she did not have to get out of bed to the bathroom multiple times. No flatus or bowel movement. Exam Vital Signs (past 8 hours): - 05/19/18 03:35 Temperature 99.1 F Pulse Rate 66 Respiratory Rate 20 Blood Pressure 144/76 H Pulse Oximetry 95 Oxygen Delivery Method Room Air Oxygen Flow Rate 0 Narrative Exam Narrative: Patient seen and examined with the attending nurse, Vandana Patient lying comfortably in bed in no acute distress. Alert oriented x3 Sclera nonicteric Chest clear auscultation bilaterally with regular rate and rhythm. No murmurs, gallops, rubs. No crackles or wheezes. Nasogastric tube is in place collecting moderately thick bilious fluid today. By calculations the output has been approximately 400 cc per shift accounting for her oral intake. Mtz catheter is in place collecting clear yellow urine She continues to diurese spontaneously at approximately 1.8 L in the last 24 hr Abdomen is soft and less distended today than when I last saw her 2 days ago. She does have some active bowel sounds but they remain hypoactive nonetheless. She is minimally but appropriately tender to palpation. Her incision is clean, dry, and intact without erythema, drainage, or ecchymosis. Extremities show no clubbing, cyanosis, or significant edema Objective Labs Result Diagrams: 05/18/18 12:05 05/18/18 12:05 Labs: Laboratory Results - last 24 hr 05/18/18 05/18/18 12:05 12:05 WBC 10.8 RBC 3.63 L Hgb 10.9 L Hct 32.6 L MCV 89.8 MCH 30.1 MCHC 33.6 RDW 13.6 Plt Count 350 Neut % (Auto) 76.0 H Lymph % (Auto) 13.1 L [place] % (Auto) 8.7 Eos % (Auto) 1.1 L Baso % (Auto) 1.1 Neut # (Auto) 8200 H Sodium 146 H Potassium 3.7 Chloride 105 Carbon Dioxide 31 BUN 7 Creatinine 0.50 L Estimated GFR > 60.0 BUN/Creatinine Ratio 14.0 Glucose 125 H Calcium 8.6 Total Bilirubin 0.3 AST 30 ALT 38 Alkaline Phosphatase 80 Total Protein 6.1 L Albumin 3.3 L Globulin 2.8 Albumin/Globulin Ratio 1.2 No new laboratory or radiographic studies reviewed today Assessment & Plan Plan: Assessment/Plan Narrative: 63-year-old female now postoperative day 7 after exploratory laparotomy with lysis of adhesions and primary repair of incarcerated ventral hernia for persistent small bowel obstruction who continues to have issues with prolonged postoperative ileus. Again, the ileus is not unanticipated given the nature of her disease as well as the required operation. She has improved slightly over the last 48 hr. Continues to diurese spontaneously so we will continue the Mtz catheter until urine output against the subside. Continue TPN. No lipids today. Decrease total IV fluid rate. Repeat laboratory studies in the next 1-2 days to check electrolytes. Currently she has no electrolyte issues. Out of bed and ambulate which she is actually doing a very excellent job with throughout the day. Continue nasogastric tube to low intermittent wall suction. If he continues to have significant output without improved bowel function in the next 24-48 hours I will repeat her small-bowel follow-through study with Gastrografin through the nasogastric tube. I discussed all the above with her in detail. All questions were answered to her satisfaction, and she voiced understanding. Orders were written. Quality VTE Deep Vein Thrombosis/Pulmonary Embolism Present on Admission: No
[2018-05-19] MEDS: ENOXAPARIN 40 MG/0.4 ML SYRINGE SUBCUT (09:45)
[2018-05-19] MEDS: PANTOPRAZOLE 40 MG VIAL IV (09:45)
--- NOTE | 2018-05-19 11:13 | CM.DPC ---
Patient continues to improve. Minimal BLOOD BANK LABORATORY TECHNICIAN use. NG continues to put out quite a bit. Plan: Continues to be home when medically stable.
--- NOTE | 2018-05-19 14:59 | PC.NURSE ---
day shift pt states pain controlled and does not want any medicaiton. CONSTRUCTION MATERIALS TESTER in place in case she changes her mind. very sleepy today and allowed pt to get some rest. She did get up to go for a walk around [place] and back to her room. She then went to chair. Hypoactive BT, still no flatus. held noon dose of scheduled ativan as pt stated that her anxiety was controlled and she was already sleepy. NGT to LIS. bilious output continues, 700 ml output, only had about 50 ml input.
[2018-05-19] MEDS: AA 5 %/CALCIUM/LYTES/DEXT 20 % 1,000 ML with MULTIVITAMIN 10 ML, TRACE ELEMENTS 1 ML, P... 43.583 ML IV (18:06)
[2018-05-19] MEDS: BENZOCAINE/MENTHOL 1 LOZ PKT 1 EACH PO ×2 (18:07→19:26)
[2018-05-19] MEDS: LORazepam 2 MG/ML SYRINGE 1 MG IV (19:26)
--- NOTE | 2018-05-19 21:28 | PC.NURSE ---
SHIFT NOTE flat affect. Ox3. pt states not having a good day today but states pain is minimal and tolerable. hypoactive/absent bowel sounds. ambulated in hallway x1 this shift (looped around [facility]). abdomen incision with anastasia and non-adhesive dressing with abdominal binder. NG intact and to LIS. per Dr. Wilson, pt okay to have sips of juice, coffee, and Popsicle but staff to keep strict I&O's. pt currently resting. call light within reach.
[2018-05-19] MEDS: HYDROMORPHONE PCA 6 MG/30 ML PCA.VIAL IV (22:07)
[2018-05-20] MEDS: LORazepam 2 MG/ML SYRINGE 0.5 MG IV ×3 (02:37→18:30)
[2018-05-20 05:52] VITALS: BP 157/78; PULSE 67; RESP 16; TEMP 36.4; O2SAT 96
[2018-05-20] MEDS: BENZOCAINE/MENTHOL 1 LOZ PKT 1 EACH PO ×2 (06:52→16:38)
[2018-05-20 08:00] VITALS: BP 149/87; PULSE 57; RESP 22; TEMP 36.1; O2SAT 94
--- NOTE | 2018-05-20 08:46 | PM.PN.1 ---
Subjective Date Patient Seen: 05/20/18 Time Patient Seen: 08:46 Interval history: Denies nausea or vomiting. Nasogastric tube output, however, remains at 400-500 cc per shift of bilious fluid even when accounting for the oral intake. She did pass flatus this morning per her report. No bowel movement. Pain is minimal and otherwise well controlled. She ambulated yesterday without difficulty. Overall she had a good night and slept without significant issues. Exam Vital Signs (past 8 hours): - 05/20/18 05:52 Temperature 97.6 F Pulse Rate 67 Respiratory Rate 16 Blood Pressure 157/78 H Pulse Oximetry 96 Oxygen Delivery Method Room Air Oxygen Flow Rate 0 Narrative Exam Narrative: Patient seen and examined with the attending nurse, Cherri Patient alert oriented x3. Resting comfortably in bed. No acute distress. Sclera nonicteric Chest clear to auscultation bilaterally with regular rate and rhythm. No crackles or wheezes. Abdomen shows some hypoactive bowel sounds throughout. She is less distended and softer today. Appropriately tender. No guarding or rebound. Wound is clean, dry, and intact without erythema or ecchymosis. No wound drainage. Extremities show no clubbing, cyanosis, or edema Objective Labs Result Diagrams: 05/18/18 12:05 05/18/18 12:05 Labs: No new laboratory or radiographic studies for review Assessment & Plan Plan: Assessment/Plan Narrative: 63-year-old female now postoperative day 8 from laparotomy with lysis of adhesions and primary repair of incarcerated ventral hernia who continues to have slowly resolving postoperative ileus. Doubt recurrent small-bowel obstruction, but this warrants investigation. Therefore will obtain small-bowel follow-through with Gastrografin via the NG tube today. I have discussed this with Radiology as well as the patient. Continue TPN. Repeat laboratory studies tomorrow. Out of bed with ambulation as much as possible. I am hopeful that she has slowly returning bowel function at this time given the flatus as well as her examination findings today. Continue COSMETICS AND TOILETRIES SALESPERSON and Mtz catheter for now. Likely discontinue the Mtz tomorrow depending upon her progress today. All questions were answered to her satisfaction, and she voiced understanding. Orders were written. Quality VTE Deep Vein Thrombosis/Pulmonary Embolism Present on Admission: No
--- NOTE | 2018-05-20 08:49 | P.PN_ITS ---
Subjective Date Patient Seen: 05/20/18 Time Patient Seen: 08:46 Interval history: Denies nausea or vomiting. Nasogastric tube output, however, remains at 400-500 cc per shift of bilious fluid even when accounting for the oral intake. She did pass flatus this morning per her report. No bowel movement. Pain is minimal and otherwise well controlled. She ambulated yesterday without difficulty. Overall she had a good night and slept without significant issues. Exam Vital Signs (past 8 hours): - 05/20/18 05:52 Temperature 97.6 F Pulse Rate 67 Respiratory Rate 16 Blood Pressure 157/78 H Pulse Oximetry 96 Oxygen Delivery Method Room Air Oxygen Flow Rate 0 Narrative Exam Narrative: Patient seen and examined with the attending nurse, Cherri Patient alert oriented x3. Resting comfortably in bed. No acute distress. Sclera nonicteric Chest clear to auscultation bilaterally with regular rate and rhythm. No crackles or wheezes. Abdomen shows some hypoactive bowel sounds throughout. She is less distended and softer today. Appropriately tender. No guarding or rebound. Wound is clean, dry, and intact without erythema or ecchymosis. No wound drainage. Extremities show no clubbing, cyanosis, or edema Objective Labs Result Diagrams: 05/18/18 12:05 05/18/18 12:05 Labs: No new laboratory or radiographic studies for review Assessment & Plan Plan: Assessment/Plan Narrative: 63-year-old female now postoperative day 8 from laparotomy with lysis of adhesions and primary repair of incarcerated ventral hernia who continues to have slowly resolving postoperative ileus. Doubt recurrent small-bowel obstruction, but this warrants investigation. Therefore will obtain small- bowel follow-through with Gastrografin via the NG tube today. I have discussed this with Radiology as well as the patient. Continue TPN. Repeat laboratory studies tomorrow. Out of bed with ambulation as much as possible. I am hopeful that she has slowly returning bowel function at this time given the flatus as well as her examination findings today. Continue PIPE FITTER FIRE SPRINKLER SYSTEMS and Mtz catheter for now. Likely discontinue the Mtz tomorrow depending upon her progress today. All questions were answered to her satisfaction, and she voiced understanding. Orders were written. Quality VTE Deep Vein Thrombosis/Pulmonary Embolism Present on Admission: No
[2018-05-20 10:32] VITALS: PULSE 60; RESP 16; O2SAT 93
[2018-05-20] MEDS: ENOXAPARIN 40 MG/0.4 ML SYRINGE SUBCUT (10:33)
[2018-05-20] MEDS: PANTOPRAZOLE 40 MG VIAL IV (10:33)
--- NOTE | 2018-05-20 11:15 | PC.NURSE ---
Addendum entered by Cherri Birch R.N. 05/20/18 15:21: NGT unclamped at 1500 and placed to LIS per Dr. Wilson. Okay to have ice chips, sips of water and coffee for taste. Denies nausea. Pain 3-4/10, used QUARTER BACKER Dilaudid 0.2mg for shift total. Pt had a total of 6 BM's loose, brown, at times has soft pieces present. Passing flatus. Original Note: Day Shift- NGT previously on LIS, Clamped by Dr. Wilson at 0755 for Gastroview injection and abd XR follow through series. PIV placed to right FA by RN Coordinator and IVF and QUARTER BACKER re-started at 0840. TPN fluids infusing well to TASHA PICC. HOB above 30 degrees at all times. Abd soft, distended. Abd midline incision well approximated with anastasia and sutures intact, no S/S of infection. Covered with loose telfa held with briefs. Abd binder on.
[2018-05-20] MEDS: SODIUM CHLORIDE 0.9% 1,000 ML 42 ML IV (12:13)
[2018-05-20] MEDS: HYDROMORPHONE PCA 6 MG/30 ML PCA.VIAL IV ×2 (14:35→22:32)
[2018-05-20 16:57] VITALS: BP 142/69; PULSE 58; RESP 20; TEMP 36.6; O2SAT 92
[2018-05-20] MEDS: AA 5 %/CALCIUM/LYTES/DEXT 20 % 1,000 ML with MULTIVITAMIN 10 ML, TRACE ELEMENTS 1 ML, P... 44 ML IV (18:25)
[2018-05-20] MEDS: SODIUM CHLORIDE 0.9% FLUSH 10 ML IV ×2 (18:31→20:21)
[2018-05-20] MEDS: LORazepam 2 MG/ML SYRINGE 1 MG IV (20:20)
--- NOTE | 2018-05-20 21:32 | PC.NURSE ---
SHIFT NOTE flat affect. pt with slight increase in anxiety today compared to yesterday evening. + flatus and BMs, pt had about 4 loose stools this shift. NG to LIS with moderate amount of bile-colored output. c/o abdominal pain rated 4/10, encouraged use of dilaudid SPRAY GUN REPAIRER. pt declined to walk in hallways this shift as she had a very busy day with small bowel follow through. PRN ativan administered at bedtime. call light within reach.
[2018-05-20 21:42] VITALS: BP 144/71; PULSE 61; RESP 18; TEMP 36.7; O2SAT 92
[2018-05-21] VITALS (7 sets, daily range): BP systolic 129–151; BP diastolic 62–84; PULSE 58–74; RESP 17–22; TEMP 36.7–36.9; O2SAT 90–95
[2018-05-21] MEDS: LORazepam 2 MG/ML SYRINGE 0.5 MG IV ×3 (01:00→18:28)
[2018-05-21 08:44] LABS: Add Manual Diff / Slide Review NO; Basophils Percent Auto 0.2 % (0-2); Eosinophils Percent Auto 1.6 % (2-4); Hematocrit 34.8 % (36-46); Hemoglobin 11.6 g/dL (12.0-16.0); Lymphocytes Percent Auto 15.5 % (25-40); Mean Corpuscular HGB Conc 33.2 % (30-36); Mean Corpuscular Hemoglobin 30.1 PG (26-34); Mean Corpuscular Volume 90.6 fL (80-100); Monocytes Percent Auto 9.2 % (3-14); Neutrophils Absolute Auto 7300 /uL (3000-5900); Neutrophils Percent Auto 73.5 % (50-75); Platelet Count 420 X10^3/uL (150-400); Red Blood Cell Count 3.84 X10^6/uL (4.0-5.2); Red Cell Distribution Width 14.1 % (11.6-14.8); White Blood Cell Count 9.9 X10^3/uL (4.5-11.0)
[2018-05-21 08:49] LABS: BUN Creatinine Ratio 32.9 (6-22); Blood Urea Nitrogen 23 mg/dL (7-17); Calcium 8.8 mg/dL (8.4-10.2); Carbon Dioxide 31 mmol/L (22-32); Chloride 106 mmol/L (98-107); Estimated Glomerular Filt Rate > 60.0 mL/min (>60); Glucose 121 mg/dL (80-110); HEMOLYSIS 24 (0-50); Magnesium 2.4 mg/dL (1.6-2.3); Phosphorous 4.3 mg/dL (2.8-4.1); Potassium 4.7 mmol/L (3.4-5.1); Sodium 145 mmol/L (137-145)
[2018-05-21] MEDS: ENOXAPARIN 40 MG/0.4 ML SYRINGE SUBCUT (09:42)
[2018-05-21] MEDS: PANTOPRAZOLE 40 MG VIAL IV (09:42)
[2018-05-21] MEDS: SODIUM CHLORIDE 0.9% 1,000 ML 42 ML IV (09:50)
--- NOTE | 2018-05-21 13:04 | PM.PN.1 ---
Subjective Date Patient Seen: 05/21/18 Time Patient Seen: 13:04 Interval history: Denies nausea or vomiting. No chest pain or shortness of breath. Pain is well controlled with ASSOCIATE MERCHANDISE PLANNER. In fact, she is not requiring a significant amount of Dilaudid. Remains on Ativan for anxiety which appears to be controlled at this time. She has ambulated in the halls this morning without significant issue. She continues to have flatus and liquid bowel movements this morning. She reports flatus in between bowel function as well. Still feels subjectively distended however. Not yet particularly hungry. Exam Vital Signs (past 8 hours): - 05/21/18 06:00 05/21/18 08:00 05/21/18 10:00 Temperature 98.3 F 98.1 F Pulse Rate 66 59 L Respiratory Rate 19 22 Blood Pressure 151/74 H 140/84 Pulse Oximetry 95 90 L 95 Fraction of Inspired Oxygen 21 Oxygen Delivery Method Room Air Oxygen Flow Rate 0 Narrative Exam Narrative: Well-nourished well-developed female sitting in the bedside chair, reclined, and in no acute distress. Alert oriented x3 Nasogastric tube remains in position draining bile tinged fluid. Fluid is somewhat more clear than yesterday. Output is actually diminished as well but remains around 900 cc for the last 24 hr. Chest clear to auscultation bilaterally with regular rate and rhythm. No crackles or wheezes. Abdomen remains distended but soft. However, her distention is not as pronounced as it was approximately 2 days ago. She is appropriately tender palpation without any evidence of guarding or rebound. Wound is clean and intact. Extremities show no clubbing, cyanosis, or edema. Mtz catheter remains in place collecting clear urine. Objective Labs Result Diagrams: 05/21/18 08:30 05/21/18 08:30 Labs: Laboratory Results - last 24 hr 05/21/18 05/21/18 08:30 08:30 WBC 9.9 RBC 3.84 L Hgb 11.6 L Hct 34.8 L MCV 90.6 MCH 30.1 MCHC 33.2 RDW 14.1 Plt Count 420 H Neut % (Auto) 73.5 Lymph % (Auto) 15.5 L [place] % (Auto) 9.2 Eos % (Auto) 1.6 L Baso % (Auto) 0.2 Neut # (Auto) 7300 H Sodium 145 Potassium 4.7 Chloride 106 Carbon Dioxide 31 BUN 23 H Creatinine 0.70 Estimated GFR > 60.0 BUN/Creatinine Ratio 32.9 H Glucose 121 H Calcium 8.8 Phosphorus 4.3 H D Magnesium 2.4 H Assessment & Plan Plan: Assessment/Plan Narrative: 63-year-old female now postoperative day 9 from laparotomy with lysis of adhesions for small-bowel obstruction who continues to have slowly resolving prolonged postoperative ileus, which is not unanticipated given the nature of her disease and required operation. Continue TPN for nutritional support. Continue nasogastric tube although she may clamp this as she ambulates aggressively in the halls. Possibly give a trial of prolonged NG clamping tomorrow if she continues to pass flatus and bowel movements. Patient strongly desired to leave Mtz catheter in place for now. I will slow her normal saline to 21 cc/hour in conjunction with the TPN, especially since the patient continues to diurese spontaneously. All questions were answered to her satisfaction, and she voiced understanding. Orders were written. Quality VTE Deep Vein Thrombosis/Pulmonary Embolism Present on Admission: No
--- NOTE | 2018-05-21 15:34 | CM.DPC ---
DCP: continued: Case again received, EMR reviewed and discussed in Team Rounds. Pt is continuing to progress but does remain on TPN. Ambulating in halls. 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 P: remains: home to her sister's house in [place] until she is stable enough for clearence from surgeons to return to her home in [place].
[2018-05-21] MEDS: BENZOCAINE/MENTHOL 1 LOZ PKT 1 EACH PO (15:44)
[2018-05-21] MEDS: SODIUM CHLORIDE 0.9% 1,000 ML 21 ML IV (15:44)
--- NOTE | 2018-05-21 15:58 | PC.NURSE ---
Patient A&OX3, 94% on RA, denies pain at this time. This RN asked patient if she is ready to have garcia catheter removed and she states that she is not ready, would prefer to keep it in to allow for rest. Call light in reach, will continue to monitor.
[2018-05-21] MEDS: AA 5 %/CALCIUM/LYTES/DEXT 20 % 1,000 ML with MULTIVITAMIN 10 ML, TRACE ELEMENTS 1 ML, P... 42.667 ML IV (18:23)
[2018-05-21] MEDS: FAT EMULSIONS 50 GM/250 ML EMULSION IV (18:23)
[2018-05-21] MEDS: LORazepam 2 MG/ML SYRINGE 1 MG IV (21:06)
[2018-05-21] MEDS: HYDROMORPHONE PCA 6 MG/30 ML PCA.VIAL IV (21:10)
[2018-05-22] VITALS: BP 154/81; PULSE 65; RESP 20; TEMP 36.7; O2SAT 93
[2018-05-22] MEDS: LORazepam 2 MG/ML SYRINGE 0.5 MG IV ×3 (00:46→18:29)
[2018-05-22 05:00] VITALS: BP 138/72; PULSE 61; RESP 21; TEMP 36.8; O2SAT 94
[2018-05-22 07:45] VITALS: BP 137/61; PULSE 59; RESP 16; TEMP 36.4; O2SAT 94
[2018-05-22] MEDS: ENOXAPARIN 40 MG/0.4 ML SYRINGE SUBCUT (10:08)
[2018-05-22] MEDS: PANTOPRAZOLE 40 MG VIAL IV (10:08)
[2018-05-22] MEDS: SODIUM CHLORIDE 0.9% FLUSH 10 ML IV (10:08)
--- NOTE | 2018-05-22 11:26 | PC.NURSE ---
Addendum entered by Amarilys Daniels R.N. 05/22/18 12:42: Pt denies nausea, took some pills with sip of water, assisted back to bed, no needs at this time. Original Note: NG clamped per Dr Henderson. Pt sitting in chair. Alarm on.
--- NOTE | 2018-05-22 11:38 | P.PN_ITS ---
Subjective Date Patient Seen: 05/22/18 Time Patient Seen: 11:33 Interval history: Kyra is dozing in her chair at the time of our visit. She is easily aroused. She tells me that she is afraid to have her NG tube removed and she is afraid to eat because she worries that she will get nauseated again. She had a great deal of liquid stool output after upper GI and small-bowel follow-through. She has continued to pass flatus overnight but has not had more stool. She reports she is extremely hungry. NG tube is recorded at about a L a day although she continues to take sips of coffee and water and ice chips throughout the day. We have not been able to get a good record of how much she is taking in. She denies any pain. She reports that she feels a lot of rumbling around her belly. Exam Vital Signs (past 8 hours): - 05/22/18 05:00 05/22/18 07:45 Temperature 98.2 F 97.6 F Pulse Rate 61 59 L Respiratory Rate 21 16 Blood Pressure 138/72 137/61 Pulse Oximetry 94 94 Fraction of Inspired Oxygen 21 Oxygen Delivery Method Room Air Oxygen Flow Rate 0 Narrative Exam Narrative: Lungs: Somewhat decreased respiratory effort but clear bilaterally Heart: Regular rate and rhythm without murmur rub or gallop Abdomen: soft, very active bowel sounds. Very minimal tenderness to palpation. Incision is clean and dry and well approximated. Extremities: Warm and well perfused. Objective Labs Result Diagrams: 05/21/18 08:30 05/21/18 08:30 Assessment & Plan Plan: Assessment/Plan Narrative: 1. Prolonged postoperative ileus after laparotomy for small bowel obstruction- this seems to be resolving slowly. I have clamped her NG tube this morning I will leave it clamped until approximately 4 o'clock this afternoon. If she has no nausea, we will check a residual at that time. 2. I have given her oral meds this morning. Since her NG tube is clamped, she should have an opportunity to absorb them and hopefully this will improve the way she is feeling 3. Atelectasis on postoperative chest film. This seems to have resolved. She is having no difficulty with breathing and has diuresed spontaneously a great deal. No further treatment required. Quality VTE Deep Vein Thrombosis/Pulmonary Embolism Present on Admission: No
[2018-05-22] MEDS: buPROPion XL 150 MG TAB 300 MG PO (12:15)
[2018-05-22] MEDS: LEVOTHYROXINE 100 MCG TABLET PO (12:15)
[2018-05-22] MEDS: risperiDONE 1 MG TABLET PO (12:15)
[2018-05-22 12:20] VITALS: BP 127/75; PULSE 55; RESP 24; TEMP 36.7; O2SAT 94
[2018-05-22] MEDS: BENZOCAINE/MENTHOL 1 LOZ PKT 1 EACH PO (14:48)
[2018-05-22 15:50] VITALS: BP 148/86; PULSE 81; RESP 12; TEMP 36.4; O2SAT 98
[2018-05-22 18:00] VITALS: BP 129/70; PULSE 69; RESP 18; TEMP 36.8; O2SAT 94
[2018-05-22] MEDS: AA 5 %/CALCIUM/LYTES/DEXT 20 % 1,000 ML with MULTIVITAMIN 10 ML, TRACE ELEMENTS 1 ML, P... 42.667 ML IV (18:29)
[2018-05-22] MEDS: MIRTAZAPINE 15 MG TABLET PO (20:31)
[2018-05-22] MEDS: HYDROMORPHONE PCA 6 MG/30 ML PCA.VIAL IV (22:14)
--- NOTE | 2018-05-22 23:35 | PC.NURSE ---
Assumed care of pt from outgoing shift at 1500. Pt awake, family at bedside. Pt has not yes used erisa attorney. pt up with one assist walker and gait belt to bsc. Pt uses call light. ice chips and small sips of water OK. Pt tolerated. ngt clamped. Pt abd binder replaced at 1800. pt did walk in hallway twice. pt alert and oriented. belongings and call light within reach. will continue to monitor.
[2018-05-23] VITALS (8 sets, daily range): BP systolic 119–136; BP diastolic 58–72; PULSE 57–78; RESP 16–24; TEMP 36.4–37.1; O2SAT 92–96
[2018-05-23] MEDS: LORazepam 2 MG/ML SYRINGE 0.5 MG IV ×3 (00:41→12:16)
[2018-05-23] MEDS: BENZOCAINE/MENTHOL 1 LOZ PKT 1 EACH PO ×2 (00:44→06:01)
--- NOTE | 2018-05-23 01:05 | PC.NURSE ---
Addendum entered by Luisa Calvert R.N. 05/23/18 06:06: CBG this morning is 129. Continues on TPN. Used none of GENERAL PASSENGER AGENT this shift. Still complains of sore throat so medicated with Cepacol which she states helps a little. Original Note: Patient is alert and oriented but drowsy so answering mostly yes/no to questions asked. Breath sounds diminished but CTA with RA sat of 94%; on continuous pulse oximetry per MD order. HRR. Denies nausea. NG present in left nare but remains clamped. BT present and abdomen is soft; passing flatus. Midline incision MACK with intact anastasia and no redness/drainage noted. Wearing abdominal binder for comfort. Denies pain except for sore throat; medicated with Cepacol lozenge. Does have GENERAL PASSENGER AGENT available for other discomfort for use as needed. Turns self in bed. Transfers to BSC with 1 assist but has weakness in bilateral LE. TPN infusing via PICC line and CBG at 0000 was 119. SCD's applied at shift change but now removed when up to bathroom and declines to have them put back on. Fall risk score is high and bed alarm is activated.
[2018-05-23] MEDS: HYDROMORPHONE PCA 6 MG/30 ML PCA.VIAL IV ×2 (06:01→15:06)
[2018-05-23] MEDS: risperiDONE 1 MG TABLET PO (10:56)
[2018-05-23] MEDS: buPROPion XL 150 MG TAB 300 MG PO (10:56)
[2018-05-23] MEDS: PANTOPRAZOLE 40 MG VIAL IV (10:56)
[2018-05-23] MEDS: SODIUM CHLORIDE 0.9% 1,000 ML 21 ML IV (10:57)
[2018-05-23] MEDS: ENOXAPARIN 40 MG/0.4 ML SYRINGE SUBCUT (10:57)
[2018-05-23] MEDS: LEVOTHYROXINE INJ 100 MCG VIAL 75 MCG IV (12:08)
--- NOTE | 2018-05-23 15:28 | PC.NURSE ---
Shift summary: Alert and oriented X3. SBA with FWW, steady on her feet. NG tube dc'd at 0930 this morning. Tolerating clear liquids without N/V, Dr Henderson advanced to [facility] soft for dinner. BT+, flatus+. Moved her bowels at least twice today- BM is loose, but she says there is more substance to it than there was. Voiding WNL. Abd incision MACK, well-approximated and without bleeding, redness or drainage. Abd binder in place. CART PUSHER and TPN per orders. Per Dr Henderson, TPN dc'd when current bag is empty (this marcie). Ambulated to [facility] and back X2 today. Resting back in bed now. Call light in reach, alarm on. Cont pulse ox in place.
--- NOTE | 2018-05-23 17:59 | PC.NURSE ---
Assumed care of pt from outgoing shift today. pt ngt out, pt in much better spirits, pt laughing and very talkative. pt wants to walk with sister. compliant with nursing assessments. Pt up in chair. voided and bm (still loose)to br. pt mobility once up is great, pt has difficulty getting out of bed. Pt ate meatloaf and mashed potatoes with dinner. Pt complains of pain to the lower abdomen and uses BLOOD BANK TECHNICIAN as needed. TPN complete and removed. Pt denies further needs at this time. will continue to monitor pt for safety. 1800- pt walked entire length of hallway with sister, voided one time. states she feels so much better. Pt uses call light.
--- NOTE | 2018-05-23 18:33 | PM.PN.1 ---
Subjective Date Patient Seen: 05/23/18 Time Patient Seen: 18:33 Interval history: Patient seen earlier today and then again this afternoon with family. She is in much better spirits. She had no nausea overnight and so the NG tube was pulled this morning. She tolerated clear liquids all day without any nausea or difficulty and has continued to pass flatus and urinate appropriately. She has been walking in the halls with her sister. She ate mashed potatoes and meat loaf for supper and enjoyed it quite well without any nausea. She complains of abdominal pain only after walking and says it is all in the lower portion of her abdomen. Exam Vital Signs (past 8 hours): - 05/23/18 11:55 05/23/18 13:04 05/23/18 13:43 Temperature 98.2 F Pulse Rate 61 Respiratory Rate 16 Blood Pressure 119/72 Pulse Oximetry 93 95 94 05/23/18 16:23 Temperature 97.6 F Pulse Rate 77 Respiratory Rate 18 Blood Pressure 136/69 Pulse Oximetry 96 Fraction of Inspired Oxygen 21 Oxygen Delivery Method Room Air Oxygen Flow Rate 0 Narrative Exam Narrative: Lungs: Clear bilaterally Heart: Regular rate and rhythm Abdomen: Soft, appropriately tender to palpation, active bowel sounds, no rebound or guarding, no erythema or drainage Extremities: Warm and well perfused and without edema Objective Labs Result Diagrams: 05/21/18 08:30 05/21/18 08:30 Assessment & Plan Plan: Assessment/Plan Narrative: Much improvement over the last 24 hr. We will stop all of her IV fluid tonight as soon as her TPN is concluded. We will change her to oral pain meds. If she continues to do well over the evening, we could consider discharge tomorrow or . Quality VTE Deep Vein Thrombosis/Pulmonary Embolism Present on Admission: No
[2018-05-23] MEDS: MIRTAZAPINE 15 MG TABLET PO (19:49)
[2018-05-23] MEDS: ALPRAZolam 0.25 MG TABLET PO (19:49)
[2018-05-23] MEDS: OXYCODONE/ACETAMINOPHEN 5/325 TABLET 1 TAB PO (19:49)
[2018-05-24 00:40] VITALS: BP 117/65; PULSE 56; RESP 18; TEMP 36.4; O2SAT 95
[2018-05-24 05:40] VITALS: BP 121/67; PULSE 54; RESP 18; TEMP 36.8; O2SAT 96
[2018-05-24] MEDS: LEVOTHYROXINE 100 MCG TABLET PO (05:43)
[2018-05-24 07:50] VITALS: BP 131/72; PULSE 55; RESP 16; TEMP 36.6; O2SAT 94
[2018-05-24 08:20] VITALS: PULSE 63; RESP 16; O2SAT 95
[2018-05-24] MEDS: PANTOPRAZOLE 40 MG VIAL IV (08:53)
[2018-05-24] MEDS: SODIUM CHLORIDE 0.9% FLUSH 10 ML IV (08:53)
[2018-05-24] MEDS: buPROPion XL 150 MG TAB 300 MG PO (08:53)
[2018-05-24] MEDS: ALPRAZolam 0.25 MG TABLET PO (08:53)
[2018-05-24] MEDS: ENOXAPARIN 40 MG/0.4 ML SYRINGE SUBCUT (08:54)
[2018-05-24] MEDS: risperiDONE 1 MG TABLET PO (08:54)
[2018-05-24 11:10] VITALS: BP 108/72; PULSE 68; RESP 17; TEMP 36.6; O2SAT 94
--- NOTE | 2018-05-24 11:47 | PC.NURSE ---
Patient up to chair, showered with assistance of POWER CLEANER OPERATOR, and now sitting up in chair again for lunch. Denies pain, denies n/v. Reports poor appetite or not feeling like eating breakfast but attempted to eat a small amount. Midline abdominal incision MACK, well approximated, with anastasia and sutures in place. Call light within reach. continue to monitor.
[2018-05-24] MEDS: OXYCODONE/ACETAMINOPHEN 5/325 TABLET 1 TAB PO ×2 (13:19→17:44)
--- NOTE | 2018-05-24 14:47 | PC.NURSE ---
Patient concerned that she has stairs to climb at home and may need walker for use at home (staying with her sister for help). Dr. Henderson notified, and plans to come in later to discharge patient. Order for P.T. eval and treat received and order for FWW for home use received and entered.
[2018-05-24 15:20] VITALS: BP 115/76; PULSE 84; RESP 18; TEMP 36.7; O2SAT 96
--- NOTE | 2018-05-24 16:24 | PM.DS.1 ---
History of Present Illness Date Patient Seen: 05/24/18 Time Patient Seen: 16:24 Chief complaint: got off a flight and feels ill Narrative: Kyra is a very pleasant 63-year-old lady who lives in [place] but came to [place] to visit family. She reports that she was feeling ill when she left and by the time she got off the plane she was very sick. She presented to the emergency room with abdominal pain and nausea. Discharge Providers Date of admission: 05/08/18 02:40 Consults: 05/08/18 06:37 Consult to Discharge Planning Routine Comment: Consult to Respiratory Therapy Evaluate & Treat Comment: Physician Instructions: Evaluate and treat 05/12/18 15:09 Consult to Discharge Planning Routine Comment: 05/15/18 16:10 Consult to PICC Line RN Routine Comment: 05/24/18 14:42 Consult to Physical Therapy Evaluate & Treat Comment: FWW for home use Physician Instructions: Evaluate and Treat Discharge provider: Juanita Henderson MD Summary Discharge Diagnosis: Small-bowel obstruction Recurrent incisional hernia Postoperative atelectasis Prolonged postoperative ileus Hospital Course: Stoney was admitted to the acute care floor and initially managed conservatively for her small-bowel obstruction. When she failed conservative management, she was taken to the operating room for an exploratory laparotomy. Laparotomy revealed a large incisional hernia creating a small bowel obstruction. This was corrected and the hernia was repaired. The patient was returned to the acute Care Floor for convalescence. She experienced an extended postoperative ileus as well as significant atelectasis. She was started on total parental nutrition. After approximately 8 days, she began to diurese spontaneously. This was followed by a return of bowel function and generalized improvement. All of her home meds were restarted. At the time of discharge, she is walking the halls using a walker for help with stability. She is wearing a binder on her abdomen for comfort. She is eating a regular diet and her pain is well controlled with a minimal narcotic oral pain medication. She is being discharged to her sister's home in the care of her sister and [id number]. She will follow up with our office in 1 week for removal of the remainder of her surgical clips. Status at Discharge Cognitive/behavioral status at discharge: Normal Functional status at discharge: uses cane/walker Overall status at discharge: patient is progressing back to baseline Time Spent with Patient Less than 30 minutes Exam Vital Signs (past 8 hours): - 05/24/18 11:10 05/24/18 15:20 Temperature 97.9 F 98.1 F Pulse Rate 68 84 Respiratory Rate 17 18 Blood Pressure 108/72 115/76 Pulse Oximetry 94 96 Fraction of Inspired Oxygen 21 Oxygen Delivery Method Room Air Oxygen Flow Rate 0 Objective Labs Result Diagrams: 05/21/18 08:30 05/21/18 08:30 Discharge Plan Discharge Plan Patient Disposition: Home Discharge Med Rec/Prescriptions Prescriptions: New oxycodone-acetaminophen 5-325 mg tablet 1 tab PO Q4-6H MDD 5 PRN (Reason: pain) Qty: 30 RF: 0 walker misc .ROUTE .MEDSUPPLY Qty: 1 RF: 0 Continue omeprazole 40 mg Capsule,Delayed Release(Dr/Ec) 40 mg PO DAILY PRN (Reason: Acid Reflux) RF: 0 levothyroxine [Synthroid] 100 mcg Tablet 100 mcg PO DAILY RF: 0 alprazolam 0.25 mg Tablet 0.25 mg PO BID RF: 0 aspirin [Aspir-Edel] 325 mg Tablet,Delayed Release (Dr/Ec) 325 mg PO DAILY RF: 0 mirtazapine 15 mg Tablet 15 mg PO DAILY RF: 0 risperidone 1 mg Tablet 1 mg PO DAILY RF: 0 cholecalciferol (vitamin D3) [Vitamin D3] 1,000 unit Capsule 1,000 unit PO DAILY RF: 0 glucosamine-chondroitin [Osteo Bi-Flex] 250-200 mg Tablet 2 tab PO QPC RF: 0 bupropion HCl 300 mg Tablet Extended Release 24 Hr 300 mg PO QAM RF: 0 vitamin Y10-hclew acid 0.5-1 mg Tablet 1 tab PO DAILY RF: 0 Follow up/Referrals: Juanita Henderson MD [Physician] - 1 Week Provider Discharge Instructions Diet: Diet as Tolerated Skin/Wound/Dressing Care Report to your healthcare provider any signs of infection, such as:: chills, fever, night sweats, increased pain and unusual drainage Discharge Data Attending Provider: Binh Wilson Admit Date/Time: 05/08/18 02:40 Quality VTE Deep Vein Thrombosis/Pulmonary Embolism Present on Admission: No
--- NOTE | 2018-05-24 16:26 | PT.IIE ---
Current Diagnoses Intestinal adhesions [bands], with partial obstruction (05/08/18) Surgery Performed Operation Date: 05/12/18 10:15 Actual Procedures p Exploratory Laparotomy GEN - Bowel Obstruction - Juanita Henderson MD Surgical History (Last Reviewed 05/24/18 @ 16:15 by Ulises Perkins PT, [place]) History of colonoscopy (Acute) History of foot surgery (Acute) History of incisional hernia repair (Acute) History of unilateral oophorectomy (Acute) Status post partial colectomy (Acute) Medical History (Last Reviewed 05/24/18 @ 16:15 by Ulises Perkins PT, [place]) Anxiety disorder (Acute) Benign ovarian tumor (Acute) Depression (Acute) Gastroesophageal reflux disease (Acute) History of colitis (Acute) History of diverticulitis (Acute) History of tobacco abuse (Acute) Hyperlipidemia (Acute) Hypothyroidism (Acute) Perforation of colon as colonoscopy complication (Acute) Vitamin D deficiency (Acute) Physical Therapy Inpatient Evaluation/Re-Eval M1 PT/OT-IP Prior Functional Status Start: 05/24/18 16:17 Freq: NEEDED Status: Active Protocol: Document 05/24/18 16:18 [facility] (Rec: 05/24/18 16:26 [facility] [id number]) Medical Review Prior Functional Status Medical History Reviewed Yes Mobility and Gait independent no device. Has been using FWW since hospitalization. Activities of Daily Living and IADL's Indep Prior Functional Level (Other details) Indep Social History Household Members spouse Living Arrangements House Number of Stairs To Enter/Railing? 1, railing Home Environment Standard Height Toilet Tub/Shower Home Equipment Grab Bars Near Toilet Grab Bars In Shower M2 PT-IP Current Condition Start: 05/24/18 16:17 Freq: NEEDED Status: Active Protocol: Document 05/24/18 16:18 [facility] (Rec: 05/24/18 16:26 [facility] [email or web address]) Physical Therapy Current Condition Current Condition Evaluation Date 05/24/18 Treatment Diagnosis SBO, weakness M3 PT-IP Subjective Start: 05/24/18 16:17 Freq: NEEDED Status: Active Protocol: Document 05/24/18 16:18 [facility] (Rec: 05/24/18 16:26 [facility] [email or web address]) Subjective Physical Therapy Visit Type Type Initial Evaluation Visit Start Time 13:45 Visit Stop Time 14:20 Total Visit Minutes 35 Number of CONSERVATION SCIENCE TEACHER Visits 0 Physical Therapy Visit Comments Patient Comments Being discharged to sister's house today; has stairs with railing on the left. Patient Goals Be safe at sister's house and at home. Therapy Pain Assessment Pain When Pain Assessed During Mobility Pain Present Pain Present Pain Reported M4 PT-IP Mobility and Gait Start: 05/24/18 16:17 Freq: NEEDED Status: Active Protocol: Document 05/24/18 16:18 [facility] (Rec: 05/24/18 16:26 [facility] [email or web address]) Gait Assessment Gait Gait Assistance Required: Standby Assistance Distance (Feet) 150 Assistive Devices Assistive Device Gait Belt Straight Cane Front Wheeled Walker Orthotic/Prosthetic Devices or Brace: No Factors Limiting Gait Function Factors Limiting Gait Function Decreased Strength Comments Gait Comments Patient fatigues quickly requiring rest break. Safest with the use of a walker for gait at this time. Demonstrated good understanding of use of FWW and cane. Recommend patient obtain FWW for home use at this time. Stair Climbing Assessment Evaluation Level of Assist On Stairs Standby Assistance Devices Stair Climbing Assistive Devices Straight Cane Left Railing Comments Stair Climbing Comments 3x practice with SBA and cues for sequencing. Family has straight cane at home for patient's use at their house up the stairs. M7 PT-IP Assessment and Plan Start: 05/24/18 16:17 Freq: NEEDED Status: Active Protocol: Document 05/24/18 16:18 [facility] (Rec: 05/24/18 16:26 [facility] [email or web address]) PT Summary Assessment and Plan Summary Assessment Summary No further PT indicated, patient being discharged home to sister's [place] today. Treatment Plan Other Recommendations and Next Treatment Discharge from PT Focus Discharge Recommendations PT Discharge Recommendations Home with Assistance Equipment Needed for Home Before FWW; notified physician of Discharge need for prescription.
== END 2018-05-24 18:36 | disposition home or self-care (01) | DRG 336 ==
LOC: ED 05-08 02:25 → AC 05-08 02:40
PROVIDERS: Surgery; Admitting Provider Surgery; Emergency Provider Emergency Medicine; Visit Provider Surgery
PROC: 0DNB0ZZ Release Ileum, Open Approach (ICD-10-PCS; CPT 49000; principal; 2018-05-12 10:15)
DX: K43.0 Incisional hernia with obstruction, without gangrene (principal); K56.51 Intestinal adhesions [bands], with partial obstruction; K56.7 Ileus, unspecified; J98.11 Atelectasis; F41.9 Anxiety disorder, unspecified; F17.290 Nicotine dependence, other tobacco product, uncomplicated; K21.9 Gastro-esophageal reflux disease without esophagitis; I50.9 Heart failure, unspecified
CPT/HCPCS: 36415; 36569; 49560; 71045; 74019; 74022; 74176; 74177; 74250; 80048; 80053; 81003; 81025; 82550; 82553; 82962; 83605; 83735; 83880; 84100; 84484; 85025; 86850; 86900; 86901; 93005; 93010; 94640; 94760; 94762; 96361; 96374; 96375; 96376; 99222; 99232; 99283; 99284; 99406; B4189; C9113; J0330; J1100; J1170; J1642; J1650; J1885; J2060; J2270; J2405; J2704; J2765; J3010; J3480; J7613; Q9967